=== PATIENT | male | born 1950 ===

== ENCOUNTER 2024-08-25 16:58 | Inpatient (IN) | payer OTHER, SELFPAY ==
[2024-08-25] VITALS (10 sets, daily range): BP systolic 59–140; BP diastolic 42–81; BMI 32.4
[2024-08-25 13:14] LABS: % Basophils 0.3 % (0-2); % Eosinophils 0.5 % (0-6); % Immature Granulocytes 0.7 % (0-0.5); % Lymphocytes 15.1 % (20.5-51.1); % Monocytes 5.2 % (1.7-9.3); % Neutrophils 78.2 % (42.2-75.2); Absolute Eosinophils 0.1 10^3/uL (0-0.7); Absolute Immature Granulocytes 0.1 10^3/uL (0-0.05); Absolute Lymphocytes 1.5 10^3/uL (1.2-3.4); Absolute Monocytes 0.5 10^3/uL (0.1-0.6); Absolute Neutrophils 7.9 10^3/uL (1.4-6.5); Hematocrit 36.9 % (39.0-52.0); Hemoglobin 12.6 g/dL (13.0-18.0); Mean Corp Hgb Conc. 34.1 g/dL (33.0-37.0); Mean Corpuscular Hgb 30.9 pg (27.0-31.0); Mean Corpuscular Volume 90.4 fL (80.0-94.0); Mean Platelet Volume 10.2 fL (7.4-10.4); Nucleated Red Blood Cells % 0 % (-); Platelet Count 346 10^3/uL (130-400); Red Blood Cell Count 4.08 10^6/uL (4.70-6.10); Red Cell Dist. Width 11.9 % (11.5-14.5); White Blood Cell Count 10.1 10^3/uL (4.8-10.8)
[2024-08-25 13:27] LABS: APTT 42.5 Sec (23.4-35.0)
--- NOTE | 2024-08-25 13:28 | ED.GENMED ---
History of Present Illness
General
Chief Complaint: Eye Problems
Time Seen by Provider: 08/25/24 13:14
History of Present Illness
History of Present Illness:
73-year-old male with history of PEs on Eliquis, BPH status post Javier catheter, high cholesterol, and hypertension presents for evaluation of left eye vision loss that began 3 days ago. He states it was rather sudden. It seems to wax and wane but
feels as though a 'shroud' has covered his left eye. He saw his quality assurance representative today who was concerned for branch retinal artery occlusion and referred him into the ED. He denies headaches but does report lightheadedness. No nausea vomiting or
diarrhea. No recent head trauma. Denies any speech difficulties or extremity deficits
Review of Systems
Review of Systems
Allergies reviewed?: Yes
All Other Systems: ROS reviewed and negative except as documented in HPI and ROS
Phy Exam
Physical Exam
Physical Exam:
GEN: Well appearing, NAD, WDWN
HEENT: Significant pupillary dilation secondary to prior ophthalmologic exam, normal extraocular motions, no temporal artery tenderness bilaterally, oral mucosa moist, no scleral icterus, no nasal congestion
Cardiac: Regular rate
Lung: No respiratory distress, no tachypnea
MSK: No gross deformity or injuries
Skin: Good color, no pallor or jaundice, no rashes
Neuro: AO x3; CN II-XII grossly intact. BUE strength 5/5 in all beckett, sensation intact and symmetric. BLE strength 5/5 in all beckett, sensation intact and symmetric
Psych: Calm, cooperative
Course
Orders/Labs/Results
Orders:
Orders
08/25/24 Breakfast
Cholesterol Lowering
At Your Request: Full Participation
Cholesterol Lowering: Sodium, 2 Gram
08/25/24 12:59
C-Reactive Protein Urgent
Comment: ADD ON
Complete Blood Count/With Diff Urgent
Comprehensive Metabolic Panel Urgent
Erythrocyte Sed Rate Urgent
Comment: ADD ON
PTT Urgent
08/25/24 13:27
Add On- LAB Urgent
Tests Added?: CRP, ESR
08/25/24 13:30
0.9% Sodium Chloride 1000 ml [Nss] 1,000 ml IV BOLUS
08/25/24 13:53
CT Head W/o Iv Contrast Urgent
Comment:
Reason For Exam: L eye vision loss
08/25/24 15:02
Electrocardiogram (*1) Urgent
Reason for Study: QTc Monitoring
EKG- Treatment ONCE
08/25/24 16:31
Urinalysis Reflex To Culture Urgent
Date Specimen was Collected: 08/25/24
Time Specimen was Collected: 13:54
Urine Microscopic Reflex Cult Urgent
Urine Culture Urgent
ERIC Source: U
Specimen Description:
Date Specimen was Collected: 08/25/24
Time Specimen was Collected: 13:54
08/25/24 16:43
Admit/Transfer Patient As Directed
Co-Sign Provider:
Level of Care: Inpatient admission
Assign to:: Telemetry
Physician / Group: Landeros/hospitalist
Diagnosis: ARF, retinal artery occlusion
Reason for Telemetry: CVA/TIA
Date to Stop Telemetry: 08/28/24
Time to Stop Telemetry: 11:00
Reason for Hospitalization: IVFs, retinal artery occlusion work-up
Expected length of stay greater than two midnights?: Yes
ELOS- Estimated Length of Stay in days: 3
I certify the patient meets the requirements for IP care: Yes
PRN Pain Medication Management As Directed
May give lesser potent ordered pain med per pt: Yes
preference::
Protocol:: Medication orders for pain may be administered in a
manner that supports deferring to patient preference
when the pt is:
- Requesting an ordered lesser potent pain medication.
Least to most potent pain medications are defined
as: acetaminophen < NSAID < tramadol < opioids
(morphine, oxycodone, hydromorphone).
- Requesting a lesser dose of the same medication IF
ORDERED.
- Requesting a less intrusive route of administration
if both routes are prescribed by the provider (PO <
IV).
08/25/24 16:44
Code Status As Directed
Resuscitation Status: Full Code
08/25/24 16:45
0.9% Sodium Chloride 1000 ml [Nss] 1,000 ml IV 100 mls/hr
08/25/24 17:01
Urine Creatinine Urgent
Date Specimen was Collected: 08/25/24
Time Specimen was Collected: 16:58
Urine Sodium Urgent
Date Specimen was Collected: 08/25/24
Time Specimen was Collected: 16:58
08/25/24 18:55
Acetaminophen [Tylenol] 650 mg PO Q4HPRN PRN
08/25/24 18:55
Activity As Directed
Activity Level: Out of Bed-Early Mobility
With Assistance
Javier Catheter [Catheter- Indwelling] As Directed
Reason for insertion: Chronic Javier on Admit
I&O [Intake/ Output] As Directed
Frequency: q12h
Obtain Records As Directed
Dates of Information to be Released: May 2024
Type of Information Requested: Discharge Summary
Lab Results
Radiology Results
Obtain Records from: [facility]
Vital Signs As Directed
Frequency: Per unit guidelines
08/25/24 20:00
Apixaban [Eliquis] 5 mg PO BID
08/26/24 06:00
Complete Blood Count/No Diff IN AM
08/28/24 11:00
DC Protocol for Telemetry ONCE
Abnormal Lab Results
08/25/24 08/25/24
12:59 16:31
RBC 4.08 L 10^6/uL
(4.70-6.10)
Hgb 12.6 L g/dL
(13.0-18.0)
Hct 36.9 L %
(39.0-52.0)
Abs Immat Gran (auto) 0.1 H 10^3/uL
(0-0.05)
Absolute Neuts (auto) 7.9 H 10^3/uL
(1.4-6.5)
Immature Gran % 0.7 H %
(0-0.5)
Neutrophils % 78.2 H %
(42.2-75.2)
Lymphocytes % 15.1 L %
(20.5-51.1)
ESR 71 H mm/hour
(0-20)
APTT 42.5 H Sec
(23.4-35.0)
BUN 65 H mg/dl
(9-20)
Creatinine 3.9 H mg/dL
(0.7-1.3)
Glucose 160 H mg/dl
(70-99)
ALT 53 H U/L
(0-50)
Alkaline Phosphatase 157 H U/L
(38-126)
C-Reactive Protein 12.40 H mg/L
(0.0-10.00)
Ur Occult Blood Reflex 4+ A
(Negative)
Leukocyte Esterase Rfl 3+ A
(Negative)
Urine RBC 3-6 A /HPF
(0-2)
Urine WBC (Reflex) 90-100 A /HPF
(0-5)
Urine Bacteria (Reflex) Few A
(Negative)
Urine Albumin (Reflex) 2+ A
(Neg - Trace)
08/25/24 12:59
08/25/24 12:59
Vital Signs
Initial and Last Documented VS:
Initial Vital Signs
Temp Pulse Resp BP Pulse Ox
98.2 F 101 20 79/46 98
08/25/24 12:47 08/25/24 12:47 08/25/24 12:47 08/25/24 12:47 08/25/24 12:47
Last Documented Vital Signs
Temp Pulse Resp BP Pulse Ox
98 F 98 20 140/81 99
08/25/24 19:05 08/25/24 19:05 08/25/24 19:05 08/25/24 19:05 08/25/24 19:05
MDM/Problems Addressed
MDM/Problems Addressed:
Unfortunately due to the patient's acute renal failure we cannot obtain CT angiogram imaging to evaluate the carotid in the setting of acute visual loss. Nevertheless this is likely an isolated branch retinal artery occlusion and the patient is
already anticoagulated. He will be admitted for further workup of his acute renal failure and visual loss.
*Critical Care Note
Total Time (30-74mins, 75-104mins- exclusive of procedures): Not Applicable
Update Note
Update Note:
Patient notes he was admitted to [facility] May for acute renal failure that was felt to be due to bladder outlet obstruction from BPH, status post Javier catheter. He states on admission his creatinine was 4.9 and at discharge it was
1.6 or 1.7.
ED Attending Note
-
Portions of this chart may have been created with voice recognition software.� Occasional wrong word or��sound alike� substitutions may have occurred due to the inherent limitations of voice recognition software.
Discharge Plan
Departure
Patient Disposition: Admit
Date of Disposition: 08/25/24
Time of Disposition: 15:32
Admit to: Med/Surg
Presentation/result/management discussed w/ accepting MD/DO: Hospitalist
Discharge Problem:
Acute renal failure, Vision loss, left eye
Interventions
Interventions:
*Risk Screen - Suicide Last Done: 08/25/24 13:41
*General Assessment Last Done: 08/25/24 12:47
*Neglect/Abuse Screening Last Done: 08/25/24 13:41
*ED- Fall Risk Assessment Last Done: 08/25/24 13:41
*ED COVID-19 Vaccine History Last Done: 08/25/24 13:41
*Nursing Disposition Last Done: 08/25/24 18:03
Discharge Date and Time
Discharge Date/Time: 08/25/24 18:44
[2024-08-25 13:40] LABS: ALT (SGPT) 53 U/L (0-50); AST (SGOT) 46 U/L (17-59); Albumin 3.6 g/dl (3.5-5.0); Alkaline Phosphatase 157 U/L (38-126); Blood Urea Nitrogen 65 mg/dl (9-20); Calcium 9.5 mg/dl (8.4-10.2); Carbon Dioxide 24 mmol/L (22-30); Chloride 104 mmol/L (98-107); Estimated Creatinine Clearance 18 ml/min; Glucose 160 mg/dl (70-99); Potassium 4.3 mmol/L (3.5-5.1); Sodium 139 mmol/L (135-145); Total Bilirubin 0.6 mg/dl (0.2-1.3); Total Protein 6.8 g/dl (6.3-8.2); eGFR 15.33
[2024-08-25] MEDS: NSS 1000 IV ×3 (13:55→19:51)
[2024-08-25 15:27] LABS: Erythrocyte Sed Rate 71 mm/hour (0-20)
--- NOTE | 2024-08-25 16:49 | HPS.HSE ---
Addendum entered and electronically signed by Ian Landeros MD 08/25/24 17:53:
I saw and examined the patient.
The TRANSPORTATION OFFICER or PA's note was reviewed and I agree with the note.
Comment: 73-year-old male with past medical history of PE on Eliquis, hyperlipidemia, hypertension, BPH status post chronic Javier catheter came to the hospital with left eye vision loss. Per patient his symptoms started on Tuesday which prompted
him to go to his PCP for evaluation. PCP referred him to the medicaid plan compliance director who he saw today who diagnosed him with branch retinal artery occlusion and referred him to the ED for evaluation. ESR and CRP mildly high. Check MRI/MRA. Does have
elevated creatinine. Unknown baseline however appears to be around 1's. UA suggestive of UTI. Start ceftriaxone. Exchange Javier catheter. Consult nephrology and neurology. Depends on imaging, will need to see if need to get vascular surgery
involved. High-dose statin. Check A1c.
General: Comfortable and Conversant
HEENT: Anicteric, Moist mucous membranes and Other (Pupils dilated following retinal eye exam performed by medicaid plan compliance director earlier today)
Respiratory: Clear and Non Labored Respirations
Cardiac: S1/S2 and Regular Rhythm
GI: Soft and Non Tender
Genito-urinary: Clear Urine and Javier
Musculoskeletal: No Clubbing, No Cyanosis and No Edema
Skin: Other (Chronic lower extremity skin discoloration)
Neuro: Awake, Alert, Oriented and Nonfocal/grossly intact
Psych: Calm
I spent a total of 77 minutes with the patient or on the floor. More than 50% of this time involved counseling and coordination of care.
Original Note:
Family Physician
-
Family Physician: Petros Agustin
Chief Complaint
-
Left Eye Vision Loss
History of Present Illness
Patient is 73 y/o male past medical history of pulmonary embolism on Eliquis, hypertension, hyperlipidemia, and urinary retention with chronic Javier who presents with left eye vision loss. Patient reports he awoke on Tuesday morning (3 days ago)
describing a 'shroud' over his left eye. He describes it a mostly black with jagged edges. He was seen by Ophthalmology today who performed funduscopic exam and diagnosed him with a branch retinal artery occlusion, and referred him to the
emergency department for evaluation. Work-up in the emergency department revealed a creatinine of 3.9. Patient reports he had acute renal failure with creatinine around 4.9 while he was at [facility] for his pulmonary embolism in May
2023. At that time he had the Javier catheter placed due to urinary retention, and at discharged his creatinine was around 1.1. Patient denies vomiting or diarrhea, and reports good appetite with adequate fluid intake. He admits to frequent episodes
of lightheadedness recently.
Medical History
Past Medical History
Past Medical History: Reports Other
Additional Past Medical History:
Pulmonary Embolism - May 2024
Essential Hypertension
Hyperlipidemia
Urinary Retention
Past Surgical History: Reports Other
Additional Past Surgical History:
Left Indirect Inguinal Hernia Repair
Appendectomy
Social History
Tobacco: Non-smoker
Alcohol: None
Family History
Family History: Not pertinent
Allergies / Home Medications
Allergies reflects when Allergies were last updated in [employer].
Home Medications with original date entered in [employer]
Allergy/Medication List:
Allergies
Allergy/AdvReac Type Severity Reaction Status Date / Time
No Known Allergies Allergy Verified 08/25/24 12:47
Home Medications
apixaban 5 mg tablet (Eliquis) 5 mg PO BID 08/25/24
bisacodyl 5 mg tablet,delayed release (Dulcolax (bisacodyl)) 5 mg PO DAILYPRN PRN constipation 08/25/24
lisinopril 10 mg-hydrochlorothiazide 12.5 mg tablet 1 tab PO DAILY 08/25/24
rosuvastatin 5 mg tablet 5 mg PO HS 08/25/24
therapeutic multivitamin 1 tab PO DAILY 08/25/24
Review of Systems
-
A 12 point ROS was completed and negative except as noted: Yes
Constitutional: Denies Fever or Chills
Respiratory: Denies Cough or Trouble Breathing
Cardiac: Denies Chest Pain or Palpitations
Abdomen/GI: Denies Abdominal Pain, Nausea, Vomiting or Diarrhea
: Reports Javier and Other (No changes in urine output)
Physical Exam
Vital Signs
Vital Signs
Temp Pulse Resp BP Pulse Ox
98.2 F 99 18 84/65 97
08/25/24 12:47 08/25/24 13:37 08/25/24 13:37 08/25/24 13:37 08/25/24 13:41
Physical Exam
General: Comfortable and Conversant
HEENT: Anicteric, Moist mucous membranes and Other (Pupils dilated following retinal eye exam performed by medicaid plan compliance director earlier today)
Respiratory: Clear and Non Labored Respirations
Cardiac: S1/S2 and Regular Rhythm
GI: Soft and Non Tender
Rectal: Deferred by Provider
Genito-urinary: Clear Urine and Javier
Musculoskeletal: No Clubbing, No Cyanosis and No Edema
Skin: Warm, Dry and Other (Chronic lower extremity skin discoloration)
Neuro: Awake, Alert, Oriented and Nonfocal/grossly intact
Psych: Calm
Laboratory Results
-
08/25/24 12:59
08/25/24 12:59
Laboratory Results
APTT 42.5 Sec (23.4-35.0) H 08/25/24 12:59
Total Bilirubin 0.6 mg/dl (0.2-1.3) 08/25/24 12:59
AST 46 U/L (17-59) 08/25/24 12:59
ALT 53 U/L (0-50) H 08/25/24 12:59
Alkaline Phosphatase 157 U/L (38-126) H 08/25/24 12:59
Data Reviewed
-
Lab Data: Labs Reviewed by me
Old Records: Requested
Impression/Plan
-
Acute Kidney Injury, possibly related to hypotension
-Consult Nephrology
-Attempt to obtained records from [facility]
-Hold lisinopril / HCTZ
-Continue IVFs
-Recheck creatinine in AM
Left Eye Vision Loss possibly secondary to Branch Retinal Artery Occlusion, other differential would include giant cell arteritis in setting of elevated ESR/CRP
-Consult Neurology
-Check Brain MRI with Head/Neck MRA
-Check HgbA1c and Lipid Panel
-Increase Crestor 40mg Daily
-Consider Vascular Surgery consult for temporal artery biopsy based on imaging results
Pulmonary Embolism - May 2024
-Continue Eliquis
Essential Hypertension
-Lisinopril / HCTZ on hold as above
Hyperlipidemia
-Continue Crestor
Chronic Urinary Retention
-Last Javier catheter exchange was over one months - Exchange catheter upon arrival to the floor
DVT proph: Eliquis
Code Status: Full Code
[2024-08-25 17:21] LABS: Urine Albumin 2+ (Neg - Trace); Urine Bilirubin Negative (Negative); Urine Character Cloudy (Clear); Urine Color Yellow; Urine Glucose Negative (Negative); Urine Ketone Negative (Negative); Urine Leukocyte 3+ (Negative); Urine Nitrite Negative (Negative); Urine Occult Blood 4+ (Negative); Urine Urobilinogen Negative (Neg - 1+)
[2024-08-25 17:28] LABS: Urine Squamous Cell 0-2 /LPF (Few); Urine White Cell 90-100 /HPF (0-5)
[2024-08-25 17:29] LABS: Urine Bacteria Few (Negative)
[2024-08-25 17:31] LABS: Urine Sodium 40 mmol/L (30-90)
--- NOTE | 2024-08-25 18:03 | EDRN ---
this RN called the receiving unit and notified them that paper report was going to be tubed up
[2024-08-25] MEDS: ROCEPHIN 1000 MG IV (18:32)
[2024-08-25] MEDS: STERILE WATER FOR INJECTION 10 ML IV (18:32)
[2024-08-25] MEDS: ELIQUIS 5 MG PO (19:51)
[2024-08-25] MEDS: CRESTOR 40 MG PO (19:51)
[2024-08-26 03:48] VITALS: BP 110/82
[2024-08-26] MEDS: NSS 1000 IV ×2 (05:38→23:55)
[2024-08-26 06:00] VITALS: BMI 32.0
[2024-08-26 07:05] VITALS: BP 140/93
[2024-08-26 07:44] LABS: Hematocrit 34.2 % (39.0-52.0); Hemoglobin 11.3 g/dL (13.0-18.0); Mean Corpuscular Hgb 30.1 pg (27.0-31.0); Mean Platelet Volume 10.2 fL (7.4-10.4); Platelet Count 294 10^3/uL (130-400); Red Blood Cell Count 3.76 10^6/uL (4.70-6.10); White Blood Cell Count 9.7 10^3/uL (4.8-10.8)
[2024-08-26] MEDS: ELIQUIS 5 MG PO (07:54)
[2024-08-26 08:08] LABS: ALT (SGPT) 44 U/L (0-50); AST (SGOT) 36 U/L (17-59); Albumin 3.3 g/dl (3.5-5.0); Alkaline Phosphatase 146 U/L (38-126); Blood Urea Nitrogen 59 mg/dl (9-20); Calcium 8.9 mg/dl (8.4-10.2); Carbon Dioxide 23 mmol/L (22-30); Chloride 109 mmol/L (98-107); Direct Bilirubin 0.2 mg/dl (0.0-0.4); Estimated Creatinine Clearance 22 ml/min; Glucose 115 mg/dl (70-99); HDL Cholesterol 24 mg/dl; LDL Cholesterol, Calculated 44 mg/dl; Potassium 4.9 mmol/L (3.5-5.1); Sodium 144 mmol/L (135-145); Total Bilirubin 0.6 mg/dl (0.2-1.3); Total Cholesterol 94 mg/dl (50-199); Total Protein 6.3 g/dl (6.3-8.2); Triglyceride 133 mg/dl (10-149); Very Low Density Lipoprotein 26 mg/dl (0-30); eGFR 18.73
[2024-08-26 08:47] LABS: Glycohemoglobin (HgbA1c) 6.4 % (4.0-5.6)
--- NOTE | 2024-08-26 09:58 | W.CON.NEPH ---
Consultation
-
Date/Time Consultation Requested: 08/26/2024 7 AM
Date/Time Consultation Performed: 08/26/2024 10 AM
Requesting Provider: Dr. Landeros
Performing Provider: Dr. Wright
Reason for Consultation: ZHOU
Medical History
-
Chief Complaint: Vision loss
History of Present Illness:
Patient is 73 y/o male with history of pulmonary embolism on Eliquis, hypertension, hyperlipidemia, and urinary retention with chronic Javier who presents with left eye vision loss. 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
describing a 'shroud' over his left eye. He describes it a mostly black with jagged edges. He was seen by Ophthalmology today who performed funduscopic exam and diagnosed him with a branch retinal artery occlusion, and referred him to the
emergency department for evaluation. Work-up in the emergency department revealed a creatinine of 3.9. Patient reports he had acute renal failure with creatinine around 4.9 while he was at [facility] for his pulmonary embolism in May
2023. At that time he had the Javier catheter placed due to urinary retention, and at discharged his creatinine was around 1.1. Patient denies vomiting or diarrhea, and reports good appetite with adequate fluid intake. He admits to frequent episodes
of lightheadedness recently. He denies any use of NSAIDs recently. He has had no issues with his antihypertensive regimen. He has not been on recent antibiotics. He denies any issues with his Javier catheter though it is overdue for exchange.
Past Medical History
Pulmonary Embolism - May 2024
Essential Hypertension
Hyperlipidemia
Urinary Retention
Left Indirect Inguinal Hernia Repair
Appendectomy
Social History
Tobacco: Non-Smoker
Alcohol: None
Family History
Family History: Not Pertinent
Allergies / Home Medications
Allergy/AdvReac Type Severity Reaction Status Date / Time
No Known Allergies Allergy Verified 08/25/24 12:47
�Medication �Instructions �Recorded �Confirmed �Type
apixaban 5 mg tablet (Eliquis) 5 mg PO BID 08/25/24 08/25/24 History
bisacodyl 5 mg tablet,delayed 5 mg PO DAILYPRN PRN constipation 08/25/24 08/25/24 History
release (Dulcolax (bisacodyl))
lisinopril 10 1 tab PO DAILY 08/25/24 08/25/24 History
mg-hydrochlorothiazide 12.5 mg
tablet
rosuvastatin 5 mg tablet 5 mg PO HS 08/25/24 08/25/24 History
therapeutic multivitamin 1 tab PO DAILY 08/25/24 08/25/24 History
Review of Systems
-
No chest pain or shortness of breath
Vision changes above
All other systems: Negative unless noted
Physical Exam
Vital Signs
Vital Signs
Temp Pulse Resp BP Pulse Ox
97.7 F 81 18 140/93 98
08/26/24 07:05 08/26/24 07:05 08/26/24 07:05 08/26/24 07:05 08/26/24 07:05
Lab Results
WBC 9.7 10^3/uL (4.8-10.8) 08/26/24 07:27
RBC 3.76 10^6/uL (4.70-6.10) L 08/26/24 07:27
Hgb 11.3 g/dL (13.0-18.0) L 08/26/24 07:27
Hct 34.2 % (39.0-52.0) L 08/26/24 07:27
Plt Count 294 10^3/uL (130-400) 08/26/24 07:27
Sodium 144 mmol/L (135-145) 08/26/24 07:27
Potassium 4.9 mmol/L (3.5-5.1) 08/26/24 07:27
Chloride 109 mmol/L (98-107) H 08/26/24 07:27
Carbon Dioxide 23 mmol/L (22-30) 08/26/24 07:27
BUN 59 mg/dl (9-20) H 08/26/24 07:27
Creatinine 3.3 mg/dL (0.7-1.3) H 08/26/24 07:27
eGFR 18.73 08/26/24 07:27
Glucose 115 mg/dl (70-99) H 08/26/24 07:27
Calcium 8.9 mg/dl (8.4-10.2) 08/26/24 07:27
Albumin 3.3 g/dl (3.5-5.0) L 08/26/24 07:27
Laboratory Tests
08/25/24 08/25/24
16:31 17:01
Urine pH 6.0
Ur Specific [place] 1.010
Ur Occult Blood Reflex 4+ A
Urine WBC (Reflex) 90-100 A
Urine Creatinine 53.600
Urine Sodium 40
Urine Albumin (Reflex) 2+ A
Laboratory Tests
09/06/16
09:[address] head 08/25/2024
IMPRESSION:
3 mm focus of decreased density within the left lentiform nucleus, which likely represents a small focus of old lacunar infarction.
No CT evidence for acute intracranial abnormality.
Physical Exam
Patient is awake alert oriented and in no distress. Mood and affect were pleasant, insight and judgment were good. Pupils are equal round and reactive to light, extraocular movements are intact, sclera were anicteric. Hearing was normal, ears and
nose are intact. Oropharynx was clear. Neck was supple with trachea midline and no thyromegaly. Heart was regular rate and rhythm without rubs. Lower extremities without edema. Lungs were clear to auscultation bilaterally and with normal
excursion. Abdomen was soft, nontender, with normal active bowel sounds, and no hepatosplenomegaly. Skin was without rash and with normal turgor.
Data Reviewed
-
CT Scan: Report Reviewed by me
Medical Tests ([employer], Echo etc): Image Personally Visualized and interpreted (EKG 08/25/2024 by my reading normal sinus rhythm)
Labs: Labs Reviewed by me
Old Records: Requested and Reviewed
Assessment/Plan
-
Assessment
Loss of vision
ZHOU
Chronic Javier for retention
Hypertension
History of pulmonary embolism on anticoagulation
Plan
No evidence of retention. Javier functioning well
For Jvaier exchange
Continue IV fluids
Follow BMP
Difficult to interpret urine given chronic Javier
Additional workup may be warranted if creatinine stalls
--- NOTE | 2024-08-26 10:45 | W.PN.HOSP.TC ---
Addendum entered and electronically signed by Ian Landeros MD 08/26/24 11:15:
CT with old lacunar infarct
Original Note:
Today's Communication/Plan
-
Monitor vital signs see plan
MRI/MRA
Neurology to see
Monitor creatinine
Exchange Javier catheter
Continue antibiotics
Follow urine culture
Assessment / Plan
Assessment / Plan
General: Comfortable and Conversant
HEENT: Anicteric, Moist mucous membranes and Other (Pupils dilated following retinal eye exam performed by prevention specialist earlier today)
Respiratory: Clear and Non Labored Respirations
Cardiac: S1/S2 and Regular Rhythm
GI: Soft and Non Tender
Genito-urinary: Clear Urine and Javier
Musculoskeletal: No Edema
Skin: Other (Chronic lower extremity skin discoloration)
Neuro: Awake, Alert, Oriented and Nonfocal/grossly intact
Psych: Calm
Acute Kidney Injury, possibly related to hypotension
-Consult Nephrology
-Attempt to obtained records from [facility]
-Hold lisinopril / HCTZ
-Continue IVFs
Admission creatinine, 3.9. Creatinine now 3.3
per patient when he was discharged from [place] in May his creatinine was 1's
Left Eye Vision Loss possibly secondary to Branch Retinal Artery Occlusion, other differential would include giant cell arteritis in setting of elevated ESR/CRP
Was seen by ophthalmology prior to coming to the hospital
no headache or pain so GCA is unlikely
-Consulted Neurology
-Check Brain MRI with Head/Neck MRA
A1c pending
-Increase Crestor 40mg Daily
-Consider Vascular Surgery consult for temporal artery biopsy based on imaging results
UTI
Likely secondary to chronic catheter
Exchange Javier catheter
Continue ceftriaxone
Follow urine culture
Pulmonary Embolism - May 2024
-Continue Eliquis
Essential Hypertension
-Lisinopril / HCTZ on hold as above
Hyperlipidemia
-Continue Crestor
Chronic Urinary Retention
-Last Javier catheter exchange was over one months - Exchange catheter
DVT proph: Eliquis
Code Status: Full Code
I spent a total of 52 minutes with the patient or on the floor. More than 50% of this time involved counseling and coordination of care.
Anticipated Discharge: > 48 hours
Subjective/Interval History
-
Date of Service: August 26, 2024
denies pain
Objective Data
-
Labs:
Laboratory Results
08/26/24
07:27
WBC 9.7
Hgb 11.3 L
Hct 34.2 L
Plt Count 294
Sodium 144
Potassium 4.9
Chloride 109 H
Carbon Dioxide 23
BUN 59 H
Creatinine 3.3 H
Glucose 115 H
Calcium 8.9
Total Bilirubin 0.6
AST 36
ALT 44
Alkaline Phosphatase 146 H
Vital Signs:
Vital Signs
Temp Pulse Resp BP Pulse Ox
97.7 F 81 18 140/93 98
08/26/24 07:05 08/26/24 07:05 08/26/24 07:05 08/26/24 07:05 08/26/24 07:05
I&O
08/25/24 08/26/24 08/27/24
06:59 06:59 06:59
Output Total 3000 / 3000
Balance -3000 / -3000
[2024-08-26 11:05] VITALS: BP 130/90
--- NOTE | 2024-08-26 11:29 | CM ---
CM following re: discharge planning.
Reviewed pt's chart,met with pt.
Pt is a 73 year old male, admitted with primary dx of Left Eye Vision Loss possibly secondary to Branch Retinal Artery Occlusion. ZHOU.
Pt reports he lives with spouse and 2 sons [facility], 1 step to enter, has 3 supportive children. 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
PCP: Petros Agustin
Pharmacy: [facility]
D/C plan: home with anticipated no needs.
CM will follow with discharge plan updates as hospitalization progresses
[2024-08-26 12:15] LABS: Glucose - Point of Care 130 mg/dl (70-99)
[2024-08-26] MEDS: NOVOLOG FLEXPEN-LOW RESISTANCE SC ×2 (12:20→18:41)
[2024-08-26 15:05] VITALS: BP 127/78
[2024-08-26] MEDS: LIDOCAINE URO-JET 2% 1 SYRINGE TOPICAL ×2 (15:16→17:20)
[2024-08-26 17:45] LABS: Glucose - Point of Care 159 mg/dl (70-99)
--- NOTE | 2024-08-26 18:15 | PTCARENOTE ---
3 attempts to replace luque catheter were unsuccessful. Attempted to place 20F first and met resistance and no flow of urine noted. Blood clot noted on end of catheter when removed. Bladder scan completed which showed 280mL prior to attempting
again. 20F was attempted again by a different RN without success and then 16F catheter attempted, again meeting resistance and unable to inflate balloon. Dr. Landeros notified who consulted urology.
[2024-08-26] MEDS: CRESTOR 40 MG PO (18:41)
[2024-08-26] MEDS: STERILE WATER FOR INJECTION 10 ML IV (18:42)
[2024-08-26] MEDS: ROCEPHIN 1000 MG IV (18:42)
[2024-08-26 19:59] VITALS: BP 127/87
--- NOTE | 2024-08-26 20:30 | W.PN.URO.CBU ---
Today's Communication / Plan
-
lkeeo luque hand orrigate prn clots
Assessment / Plan
-
luque trauma placed 20 fr coude shall follow up with pvt urologist expect bleeding
Diagnosis
-
Date of Service: August 26, 2024
-
Patient Diagnosis:bph chronic retntion now hematuroia and luque trauma difficult folry
Post Op Day:
Subjective
-
pain cannot void
Objective
-
Vital Signs
Temp Pulse Resp BP Pulse Ox
98.2 F 93 20 127/78 98
08/26/24 15:05 08/26/24 15:05 08/26/24 15:05 08/26/24 15:05 08/26/24 15:05
Intake and Output
08/25/24 08/26/24 08/27/24
06:59 06:59 06:59
Intake Total 1200 / 1200
Output Total 3000 / 3000 1600 / 1600
Balance -3000 / -3000 -400 / -400
Intake:
Oral fluids 1200 / 1200
Output:
Urine, Luque 3000 / 3000 1600 / 1600
Laboratory Results
08/26/24 07:27
08/26/24 07:27
Review of Systems
-
: Difficulty Voiding and Bleeding
Physical Exam
-
General - well developed, well nourished, no acute distress
Chest - clear bilaterally
Abdomen - soft, non-tender, positive bowel sounds, no CVAT, no incisional pain or distention
Genitalia - normal
Rectal - normal
Skin - warm & dry with no rash
Neuro - AOx3, no motor deficits
Extremities - no clubbing, no cyanosis, no edema
Incision - clean, dry
Dressing - clean, dry, intact
Care Review
Data Reviewed
Discussed with: Hospitalist and Nursing
--- NOTE | 2024-08-26 20:55 | CON.NEURO ---
Neuro Assessment/Plan
Assessment
BRAO left eye
Brain MRI imgs rev'd, chronic lacune left lentiform nucleus - was silent
HDL 24, LDL 44
Plan
Continue Eliquis 5 mg BID - when he completes it, will need to start aspirin 81
Crestor increased to 40
pending MRA head/neck, ECHO
Consultation
Order
Date of Consultation: 08/26/24
Requesting Provider: Ian Lnaderos
Reason for Consult: BRAO
Subjective/Objective
Subjective Data
Date of Service: August 26, 2024
from H&P:
73-year-old male with past medical history of PE on Eliquis, hyperlipidemia, hypertension, BPH status post chronic Javier catheter came to the hospital with left eye vision loss. Per patient his symptoms started on Tuesday which prompted him to go
to his PCP for evaluation. 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
This evening he reports fuzzy vision left eye in the upper half. no weakness/numbness. he does not drive
Objective Data
Vital Signs
Temp Pulse Resp BP Pulse Ox
37.2 C 100 18 127/87 97
08/26/24 19:59 08/26/24 19:59 08/26/24 19:59 08/26/24 19:59 08/26/24 19:59
Lab Results
08/26/24 07:27
08/26/24 07:27
APTT 42.5 Sec (23.4-35.0) H 08/25/24 12:59
Sodium 144 mmol/L (135-145) 08/26/24 07:27
Potassium 4.9 mmol/L (3.5-5.1) 08/26/24 07:27
BUN 59 mg/dl (9-20) H 08/26/24 07:27
Glucose 115 mg/dl (70-99) H 08/26/24 07:27
Calcium 8.9 mg/dl (8.4-10.2) 08/26/24 07:27
LDL Cholesterol, Calc 44 mg/dl 08/26/24 07:27
Patient Allergies
No Known Allergies Allergy (Verified 08/25/24 12:47)
Physical Exam
-
AAOx3, speech clear, language intact
left eye visual field loss top half, EOMI, face symmetric
full strength b/l UE/LE, moderate vibratory loss both ankles
Medications
-
Active Medications
Generic Name Dose Route Start Last Admin
Trade Name Freq PRN Reason Stop Dose Admin
Acetaminophen 650 mg 08/25/24 18:55
Acetaminophen 325 Mg Tablet PO 09/22/24 18:54
Q4HPRN PRN
mild pain/ fever>100.5F
Apixaban 5 mg 08/25/24 20:00 08/26/24 07:54
Apixaban (Eliquis) 5 Mg Tablet PO 09/22/24 19:59 5 mg
BID ESTHER Administration
Ceftriaxone Sodium 1,000 mg 08/25/24 18:00 08/26/24 18:42
Ceftriaxone 1000 Mg / 10 Ml Vial IV 1,000 mg
Q24H ESTHER Administration
Dextrose 12.5 grams 08/26/24 10:48
Dextrose 50% (0.5 Grams/Ml) 50 Ml Syringe IV 09/23/24 10:47
[id number] PRN
hypoglycemia
Protocol
Glucagon 1 mg 08/26/24 10:48
Glucagon 1 Mg Vial IM 09/23/24 10:47
PRN PRN
hypoglycemia
Protocol
Sodium Chloride 1,000 mls @ 100 mls/hr 08/25/24 16:45 08/26/24 05:38
Nss IV 1,000 mls
.Q10H ESTHER Administration
Insulin Aspart 0 units 08/26/24 11:30 08/26/24 18:41
Insulin Aspart Low Resistance 300 Units/3 Ml Pen.Injctr SC 09/23/24 11:29 Not Given
AC ESTHER
Protocol
Rosuvastatin Calcium 40 mg 08/25/24 18:55 08/26/24 18:41
Rosuvastatin (Crestor) 20 Mg Tablet PO 09/22/24 18:54 40 mg
QPM ESTHER Administration
Sodium Chloride 0 flush 08/25/24 20:00
Sodium Chloride 0.9% (Flush) Syringe IV 09/22/24 19:59
PER PROTOCOL ESTHER
Sterile Water 10 ml 08/25/24 18:00 08/26/24 18:42
Sterile Water For Injection 10 Ml Vial IV 09/22/24 17:59 10 ml
Q24H ESTHER Administration
Home Medications
�Medication �Instructions �Recorded
apixaban 5 mg tablet (Eliquis) 5 mg PO BID Blood Clot 08/25/24
Prevention/Tx
bisacodyl 5 mg tablet,delayed 5 mg PO DAILYPRN PRN constipation 08/25/24
release (Dulcolax (bisacodyl))
lisinopril 10 1 tab PO DAILY Blood Pressure 08/25/24
mg-hydrochlorothiazide 12.5 mg
tablet
rosuvastatin 5 mg tablet 5 mg PO HS High Cholesterol 08/25/24
therapeutic multivitamin 1 tab PO DAILY Supplement 08/25/24
[2024-08-26] MEDS: ELIQUIS PO (21:40)
[2024-08-26 22:42] LABS: Glucose - Point of Care 122 mg/dl (70-99)
[2024-08-26 23:54] VITALS: BP 141/87
[2024-08-27] VITALS (7 sets, daily range): BP systolic 119–139; BP diastolic 82–94; PULSE 84
[2024-08-27 08:26] LABS: Glucose - Point of Care 108 mg/dl (70-99)
[2024-08-27 08:30] LABS: % Basophils 0.3 % (0-2); % Eosinophils 0.8 % (0-6); % Immature Granulocytes 0.8 % (0-0.5); % Lymphocytes 13.3 % (20.5-51.1); % Monocytes 8.2 % (1.7-9.3); % Neutrophils 76.6 % (42.2-75.2); Absolute Eosinophils 0.1 10^3/uL (0-0.7); Absolute Immature Granulocytes 0.1 10^3/uL (0-0.05); Absolute Lymphocytes 1.5 10^3/uL (1.2-3.4); Absolute Neutrophils 8.9 10^3/uL (1.4-6.5); Hematocrit 36.5 % (39.0-52.0); Mean Corp Hgb Conc. 32.9 g/dL (33.0-37.0); Mean Corpuscular Hgb 29.8 pg (27.0-31.0); Mean Corpuscular Volume 90.6 fL (80.0-94.0); Mean Platelet Volume 10.5 fL (7.4-10.4); Nucleated Red Blood Cells % 0 % (-); Platelet Count 336 10^3/uL (130-400); Red Blood Cell Count 4.03 10^6/uL (4.70-6.10); Red Cell Dist. Width 12.2 % (11.5-14.5); White Blood Cell Count 11.6 10^3/uL (4.8-10.8)
[2024-08-27] MEDS: ELIQUIS 5 MG PO ×2 (08:55→20:07)
[2024-08-27] MEDS: NOVOLOG FLEXPEN-LOW RESISTANCE SC ×2 (08:55→18:07)
[2024-08-27] MEDS: NSS 1000 IV ×2 (08:57→22:24)
[2024-08-27 09:04] LABS: ALT (SGPT) 38 U/L (0-50); AST (SGOT) 31 U/L (17-59); Alkaline Phosphatase 143 U/L (38-126); Blood Urea Nitrogen 48 mg/dl (9-20); Calcium 8.9 mg/dl (8.4-10.2); Carbon Dioxide 25 mmol/L (22-30); Chloride 111 mmol/L (98-107); Estimated Creatinine Clearance 23 ml/min; Glucose 107 mg/dl (70-99); Sodium 144 mmol/L (135-145); Total Bilirubin 0.5 mg/dl (0.2-1.3); eGFR 20.19
--- NOTE | 2024-08-27 11:42 | W.PN.HOSP.TC ---
Today's Communication/Plan
-
monitor vitals
see plan
cw eliquis
high dose statin
pt/ot
echo
neurology to see
monitor renal function
cw fluids
Assessment / Plan
Assessment / Plan
General: Comfortable and Conversant
HEENT: Anicteric, Moist mucous membranes and Other (Pupils dilated following retinal eye exam performed by pet technologist earlier today)
Respiratory: Clear and Non Labored Respirations
Cardiac: S1/S2 and Regular Rhythm
GI: Soft and Non Tender
Genito-urinary: Clear Urine and Javier
Musculoskeletal: No Edema
Skin: Other (Chronic lower extremity skin discoloration)
Neuro: Awake, Alert, Oriented and Nonfocal/grossly intact
Psych: Calm
Acute Kidney Injury, possibly related to hypotension
-Nephrology following
-Attempt to obtained records from [facility]
-Hold lisinopril / HCTZ
-Continue IVFs
Admission creatinine, 3.9. Creatinine now 3.1
per patient when he was discharged from [facility] in May his creatinine was 1's
Left Eye Vision Loss possibly secondary to Branch Retinal Artery Occlusion, other differential would include giant cell arteritis in setting of elevated ESR/CRP, however no eye pain
Was seen by ophthalmology prior to coming to the hospital
will need neurology f/u outpatient
no headache or pain so GCA is unlikely
neurology following
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 MRA noted; some tortuosity, wanted to see neurology opinion
A1c 6.4
-Increase Crestor 40mg Daily
-Consider Vascular Surgery consult for temporal artery biopsy based on imaging results
echo pending
UTI
Likely secondary to chronic catheter
Exchange Javier catheter
Continue ceftriaxone
Follow urine culture
hx of prediabetes per patient
now a1c 6.4 consistent with diabetes
diabetes education
Pulmonary Embolism - May 2024
-Continue Eliquis
Essential Hypertension
-Lisinopril / HCTZ on hold as above
Hyperlipidemia
-Continue Crestor
Chronic Urinary Retention
-Last Javier catheter exchange was over one months - Exchange catheter. RN tried multiple times and unable; urology was consulted. now catheter changed by Dr. Spicer
DVT proph: Eliquis
Code Status: Full Code
Anticipated Discharge: Within 24 hours
Subjective/Interval History
-
Date of Service: August 27, 2024
Denies pain
Objective Data
-
Labs:
Laboratory Results
08/27/24
07:40
WBC 11.6 H
Hgb 12.0 L
Hct 36.5 L
Plt Count 336
Sodium 144
Potassium 5.0
Chloride 111 H
Carbon Dioxide 25
BUN 48 H
Creatinine 3.1 H
Glucose 107 H
Calcium 8.9
Total Bilirubin 0.5
AST 31
ALT 38
Alkaline Phosphatase 143 H
Vital Signs:
Vital Signs
Temp Pulse Resp BP Pulse Ox
98.1 F 93 16 129/91 98
08/27/24 07:00 08/27/24 07:00 08/27/24 07:00 08/27/24 07:00 08/27/24 07:00
I&O
08/26/24 08/27/24 08/28/24
06:59 06:59 06:59
Intake Total 1200 / 1200 2160 / 2160
Output Total 3000 / 3000 2200 / 2200 2300 / 2300
Balance -3000 / -3000 -1000 / -1000 -140 / -140
[2024-08-27 12:27] LABS: Glucose - Point of Care 171 mg/dl (70-99)
[2024-08-27] MEDS: NOVOLOG FLEXPEN-LOW RESISTANCE 1 UNITS SC (13:00)
--- NOTE | 2024-08-27 13:29 | W.PN.NEPH.PH ---
Today's Communication / Plan
-
Continue IV fluid
Assessment/Plan
-
Assessment
Loss of vision
ZHOU
Chronic Javier for retention
Hypertension
History of pulmonary embolism on anticoagulation
Plan
Acuity likely secondary to hypotension with systolic blood pressure in the 80s on admission
No evidence of retention. Javier functioning well
Javier exchanged
Hold lisinopril and hydrochlorothiazide
Echocardiogram on this admission normal LV
Continue IV fluids
Creatinine peaked at 3.9 down to 3.1.
Chronic indwelling Javier. Patient states in May 2024 creatinine was as high as 4.9, catheter was exchanged with a creatinine improving to 1.1.
BMP in the morning
-
-
Date of Service: August 27, 2024
CC / HPI / ROS
-
Chief Complaint:
Acute kidney injury
History of Present Illness:
Acute kidney injury with hypotension chronic indwelling Javier
Review of Systems:.
No chest pain or shortness of breath. Javier catheter chronic indwelling nonoliguric
Labs
-
Labs:
WBC 11.6 10^3/uL (4.8-10.8) H 08/27/24 07:40
RBC 4.03 10^6/uL (4.70-6.10) L 08/27/24 07:40
Hgb 12.0 g/dL (13.0-18.0) L 08/27/24 07:40
Hct 36.5 % (39.0-52.0) L 08/27/24 07:40
Plt Count 336 10^3/uL (130-400) 08/27/24 07:40
Sodium 144 mmol/L (135-145) 08/27/24 07:40
Potassium 5.0 mmol/L (3.5-5.1) 08/27/24 07:40
Chloride 111 mmol/L (98-107) H 08/27/24 07:40
Carbon Dioxide 25 mmol/L (22-30) 08/27/24 07:40
BUN 48 mg/dl (9-20) H 08/27/24 07:40
Creatinine 3.1 mg/dL (0.7-1.3) H 08/27/24 07:40
eGFR 20.19 08/27/24 07:40
Glucose 107 mg/dl (70-99) H 08/27/24 07:40
Calcium 8.9 mg/dl (8.4-10.2) 08/27/24 07:40
Albumin 3.0 g/dl (3.5-5.0) L 08/27/24 07:40
Physical Exam
-
Vital Signs:
Vital Signs
Temp Pulse Resp BP Pulse Ox
98.0 F 96 16 129/84 98
08/27/24 11:40 08/27/24 11:40 08/27/24 11:40 08/27/24 11:40 08/27/24 11:40
Respiratory:: Bilateral: CTA
Lung Excursion:: Normal
Abdomen:: Soft
Bowel Sounds:: Normal
Extremity Edema:: +1: Bilateral:
Javier Catheter: Yes
[2024-08-27 15:50] LABS: TSH Reflex To Free T4 3.31 uIU/ml (0.47-4.68)
--- NOTE | 2024-08-27 15:59 | CM ---
Spoke with pt at bedside.
Continues IV antibiotics.
Pt will be discharged with a Javier .
Offered VN pt declined need. PT feels comfortable with Javier care.
He said [place]
PLAN Home no needs
[2024-08-27 16:25] LABS: Folate 13.7 ng/ml (2.76-20); Vitamin B12 > 1000 pg/ml (239-931)
[2024-08-27 17:30] LABS: Glucose - Point of Care 119 mg/dl (70-99)
--- NOTE | 2024-08-27 17:50 | PTCARENOTE ---
I met with Mr. Guo and his to train them on the OneTouch Verio Flex glucometer. Mr. Guo stated he is not able to visualize the monitor and supplies and requested help from his . I instructed her on the set up and use of the glucometer
and she return demonstrated doing a fingerstick glucose. I reinforced resources to refer to once they obtain their actual glucometer and supplies from the pharmacy. I also recommended they contact the diabetes office if they need further assistance.
Information regarding diabetes management and outpatient diabetes education classes were provided.
--- NOTE | 2024-08-27 17:54 | W.PN.URO.CBU ---
Today's Communication / Plan
-
continue pesent care
Assessment / Plan
-
luque trauma placed 20 fr coude shall follow up with pvt urologist expect bleeding
Diagnosis
-
Date of Service: August 27, 2024
-
Patient Diagnosis:
Post Op Day:
Patient Diagnosis:bph chronic retntion now hematuroia and luque trauma difficult folry
Post Op Day:
Subjective
-
feeling better hematuria subsiding
Objective
-
Vital Signs
Temp Pulse Resp BP Pulse Ox
98.1 F 90 16 119/82 96
08/27/24 15:15 08/27/24 15:15 08/27/24 15:15 08/27/24 15:15 08/27/24 15:15
Intake and Output
08/26/24 08/27/24 08/28/24
06:59 06:59 06:59
Intake Total 1200 / 1200 2160 / 2160
Output Total 3000 / 3000 2200 / 2200 2300 / 2300
Balance -3000 / -3000 -1000 / -1000 -140 / -140
Intake:
Oral fluids 1200 / 1200 960 / 960
IV fluids (Total) 1200 / 1200
Output:
Urine, Luque 3000 / 3000 2200 / 2200 2300 / 2300
Laboratory Results
08/27/24 07:40
08/27/24 07:40
Review of Systems
-
: Difficulty Voiding and Dark Urine
Physical Exam
-
General - well developed, well nourished, no acute distress
Chest - clear bilaterally
Abdomen - soft, non-tender, positive bowel sounds, no CVAT, no incisional pain or distention
Genitalia - normal
Rectal - normal
Skin - warm & dry with no rash
Neuro - AOx3, no motor deficits
Extremities - no clubbing, no cyanosis, no edema
Incision - clean, dry
Dressing - clean, dry, intact
Care Review
Data Reviewed
Discussed with: Nursing
[2024-08-27] MEDS: CRESTOR 40 MG PO (18:07)
[2024-08-27] MEDS: ROCEPHIN 1000 MG IV (18:08)
[2024-08-27] MEDS: STERILE WATER FOR INJECTION 10 ML IV (18:08)
[2024-08-27 21:54] LABS: Glucose - Point of Care 93 mg/dl (70-99)
[2024-08-28] VITALS (7 sets, daily range): BP systolic 125–152; BP diastolic 83–94; PULSE 82
[2024-08-28 08:09] LABS: Glucose - Point of Care 139 mg/dl (70-99)
[2024-08-28 08:15] LABS: % Basophils 0.4 % (0-2); % Eosinophils 2.5 % (0-6); % Lymphocytes 17.8 % (20.5-51.1); % Monocytes 8.7 % (1.7-9.3); % Neutrophils 69.6 % (42.2-75.2); Absolute Eosinophils 0.3 10^3/uL (0-0.7); Absolute Immature Granulocytes 0.1 10^3/uL (0-0.05); Absolute Lymphocytes 1.9 10^3/uL (1.2-3.4); Absolute Monocytes 0.9 10^3/uL (0.1-0.6); Absolute Neutrophils 7.5 10^3/uL (1.4-6.5); Hematocrit 35.1 % (39.0-52.0); Hemoglobin 11.6 g/dL (13.0-18.0); Mean Corpuscular Hgb 30.3 pg (27.0-31.0); Mean Corpuscular Volume 91.6 fL (80.0-94.0); Mean Platelet Volume 10.5 fL (7.4-10.4); Nucleated Red Blood Cells % 0 % (-); Platelet Count 327 10^3/uL (130-400); Red Blood Cell Count 3.83 10^6/uL (4.70-6.10); Red Cell Dist. Width 12.1 % (11.5-14.5); White Blood Cell Count 10.8 10^3/uL (4.8-10.8)
[2024-08-28 09:00] LABS: ALT (SGPT) 34 U/L (0-50); AST (SGOT) 30 U/L (17-59); Albumin 3.1 g/dl (3.5-5.0); Alkaline Phosphatase 143 U/L (38-126); Blood Urea Nitrogen 42 mg/dl (9-20); Calcium 8.7 mg/dl (8.4-10.2); Carbon Dioxide 24 mmol/L (22-30); Chloride 110 mmol/L (98-107); Estimated Creatinine Clearance 25 ml/min; Glucose 90 mg/dl (70-99); Potassium 4.9 mmol/L (3.5-5.1); Sodium 141 mmol/L (135-145); Total Bilirubin 0.6 mg/dl (0.2-1.3); Total Protein 5.9 g/dl (6.3-8.2); eGFR 21.87
[2024-08-28] MEDS: NOVOLOG FLEXPEN-LOW RESISTANCE SC ×3 (09:09→17:15)
[2024-08-28] MEDS: ELIQUIS 5 MG PO ×2 (09:09→19:35)
--- NOTE | 2024-08-28 09:10 | W.PN.URO.CBU ---
Today's Communication / Plan
-
d/vc when stable home with luque
Assessment / Plan
-
luque trauma placed 20 fr coude shall follow up with pvt urologist expect bleeding
Diagnosis
-
Date of Service: August 28, 2024
-
Patient Diagnosis:
Post Op Day:
Patient Diagnosis:
Post Op Day:
Patient Diagnosis:bph chronic retntion now hematuroia and luque trauma difficult folry
Post Op Day:
Subjective
-
urine clear
Objective
-
Vital Signs
Temp Pulse Resp BP Pulse Ox
98.3 F 82 16 148/84 98
08/28/24 07:05 08/28/24 07:05 08/28/24 07:05 08/28/24 07:05 08/28/24 07:05
Intake and Output
08/27/24 08/28/24 08/29/24
06:59 06:59 06:59
Intake Total 1200 / 1200 4940 / 4940
Output Total 2200 / 2200 5625 / 5625
Balance -1000 / -1000 -685 / -685
Intake:
Oral fluids 1200 / 1200 1440 / 1440
IV fluids (Total) 3500 / 3500
Output:
Urine, Luque 2200 / 2200 5625 / 5625
Laboratory Results
08/28/24 06:42
08/28/24 06:42
Review of Systems
-
: Difficulty Voiding
Physical Exam
-
General - well developed, well nourished, no acute distress
Chest - clear bilaterally
Abdomen - soft, non-tender, positive bowel sounds, no CVAT, no incisional pain or distention
Genitalia - normal
Rectal - normal
Skin - warm & dry with no rash
Neuro - AOx3, no motor deficits
Extremities - no clubbing, no cyanosis, no edema
Incision - clean, dry
Dressing - clean, dry, intact
[2024-08-28] MEDS: NSS 1000 IV ×2 (09:26→19:35)
--- NOTE | 2024-08-28 10:44 | W.PN.HOSP.TC ---
Today's Communication/Plan
-
monitor vitals
see plan
monitor renal function
cw IVF
neurology to evaluate
hold lisinopril and HCTZ for now
cw eliquis
Assessment / Plan
Assessment / Plan
General: Comfortable and Conversant
HEENT: Anicteric, Moist mucous membranes
Respiratory: Clear and Non Labored Respirations
Cardiac: S1/S2 and Regular Rhythm
GI: Soft and Non Tender
Genito-urinary: Clear Urine and Javier
Musculoskeletal: No Edema
Skin: Other (Chronic lower extremity skin discoloration)
Neuro: Awake, Alert, Oriented and Nonfocal/grossly intact
Psych: Calm
Acute Kidney Injury, possibly related to hypotension
-Nephrology following
-Attempt to obtained records from [facility]
-Hold lisinopril / HCTZ
-Continue IVFs
Admission creatinine, 3.9. Creatinine now 2.9
per patient when he was discharged from [facility] in May his creatinine was 1's
Left Eye Vision Loss possibly secondary to Branch Retinal Artery Occlusion, other differential would include giant cell arteritis in setting of elevated ESR/CRP, however no eye pain
Was seen by ophthalmology prior to coming to the hospital who diagnosed KHAN
will need neurology f/u outpatient
no headache or pain
neurology following
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 MRA noted; some tortuosity, wanted to see neurology opinion
A1c 6.4
-Increase Crestor 40mg Daily
Patient to follow up with rheumatology outpatient
echo without vegetation
UTI
Likely secondary to chronic catheter
Exchange Javier catheter
ucx with pseudomonas; change abx to cefepime
hx of prediabetes per patient
now a1c 6.4 consistent with diabetes
diabetes education
Pulmonary Embolism - May 2024
-Continue Eliquis ; If patient comes off the eliquis then would need 81mg aspirin
Essential Hypertension
-Lisinopril / HCTZ on hold as above
Hyperlipidemia
-Continue Crestor
Chronic Urinary Retention
-Last Javier catheter exchange was over one months - Javier exchanged this admission.
Urology following
DVT proph: Eliquis
Code Status: Full Code
Anticipated Discharge: 24 - 48 hours
Subjective/Interval History
-
Date of Service: August 28, 2024
denies pain
Objective Data
-
Labs:
Laboratory Results
08/28/24
06:42
WBC 10.8
Hgb 11.6 L
Hct 35.1 L
Plt Count 327
Sodium 141
Potassium 4.9
Chloride 110 H
Carbon Dioxide 24
BUN 42 H
Creatinine 2.9 H
Glucose 90
Calcium 8.7
Total Bilirubin 0.6
AST 30
ALT 34
Alkaline Phosphatase 143 H
Vital Signs:
Vital Signs
Temp Pulse Resp BP Pulse Ox
98.3 F 82 16 148/84 98
08/28/24 07:05 08/28/24 07:05 08/28/24 07:05 08/28/24 07:05 08/28/24 07:05
I&O
08/27/24 08/28/24 08/29/24
06:59 06:59 06:59
Intake Total 1200 / 1200 4940 / 4940
Output Total 2200 / 2200 5625 / 5625
Balance -1000 / -1000 -685 / -685
[2024-08-28] MEDS: STERILE WATER FOR INJECTION 10 ML IV ×2 (12:53→23:04)
[2024-08-28] MEDS: MAXIPIME 1000 MG IV ×2 (12:53→23:04)
--- NOTE | 2024-08-28 13:00 | W.PN.NEURO.1 ---
Today's Communication / Plan
-
Continue apixaban long-term
No alterations to anticoagulant therapy at this time
Neuro Assessment/Plan
Assessment
BRAO left eye; most likely thromboembolic despite use of anticoagulant
Plan
Continue apixaban long-term
No alterations to anticoagulant therapy at this time
Will follow as needed
Subjective/Objective
Subjective Data
Date of Service: August 28, 2024
Objective Data
Vital Signs
Temp Pulse Resp BP Pulse Ox
36.8 C 82 16 148/84 98
08/28/24 07:05 08/28/24 07:05 08/28/24 07:05 08/28/24 07:05 08/28/24 09:15
Lab Results
08/28/24 06:42
08/28/24 06:42
APTT 42.5 Sec (23.4-35.0) H 08/25/24 12:59
Sodium 141 mmol/L (135-145) 08/28/24 06:42
Potassium 4.9 mmol/L (3.5-5.1) 08/28/24 06:42
BUN 42 mg/dl (9-20) H 08/28/24 06:42
Glucose 90 mg/dl (70-99) 08/28/24 06:42
Calcium 8.7 mg/dl (8.4-10.2) 08/28/24 06:42
LDL Cholesterol, Calc 44 mg/dl 08/26/24 07:27
Vitamin B12 > 1000 pg/ml (239-931) H 08/27/24 07:40
Patient Allergies
No Known Allergies Allergy (Verified 08/25/24 12:47)
Data Reviewed
-
MRI Head: Report Reviewed
MRA Head: Report Reviewed
MRA Neck: Report Reviewed
Labs: Report Reviewed
Lipid Profile: Report Reviewed
Reviewed with: Physician and Nurse Practioner
Old Records: Summarized
Past History
Past History
ED Past Medical History: HTN, Hypercholesterolemia and Other (Branch retinal artery occlusion August 2024, PE May 2024, urinary retention)
ED Past Surgical History: Appendectomy
Family History
Family History: Other (Reviewed and noncontributory)
Medications
-
Medications:
Generic Name Dose Route Start Last Admin
Trade Name Freq PRN Reason Stop Dose Admin
Acetaminophen 650 mg 08/25/24 18:55
Acetaminophen 325 Mg Tablet PO 09/22/24 18:54
Q4HPRN PRN
mild pain/ fever>100.5F
Apixaban 5 mg 08/25/24 20:00 08/28/24 09:09
Apixaban (Eliquis) 5 Mg Tablet PO 09/22/24 19:59 5 mg
BID ESTHER Administration
Cefepime HCl 1,000 mg 08/28/24 12:00 08/28/24 12:53
Cefepime Hcl 1,000 Mg/11.3 Ml Vial IV 1,000 mg
Q12H ESTHER Administration
Dextrose 12.5 grams 08/26/24 10:48
Dextrose 50% (0.5 Grams/Ml) 50 Ml Syringe IV 09/23/24 10:47
[id number] PRN
hypoglycemia
Protocol
Glucagon 1 mg 08/26/24 10:48
Glucagon 1 Mg Vial IM 09/23/24 10:47
PRN PRN
hypoglycemia
Protocol
Sodium Chloride 1,000 mls @ 100 mls/hr 08/27/24 06:15 08/28/24 09:26
Nss IV 1,000 mls
.Q10H ESTHER Administration
Insulin Aspart 0 units 08/26/24 11:30 08/28/24 12:55
Insulin Aspart Low Resistance 300 Units/3 Ml Pen.Injctr SC 09/23/24 11:29 Not Given
AC ESTHER
Protocol
Rosuvastatin Calcium 40 mg 08/25/24 18:55 08/27/24 18:07
Rosuvastatin (Crestor) 20 Mg Tablet PO 09/22/24 18:54 40 mg
QPM ESTHER Administration
Sodium Chloride 0 flush 08/25/24 20:00
Sodium Chloride 0.9% (Flush) Syringe IV 09/22/24 19:59
PER PROTOCOL ESTHER
Sterile Water 10 ml 08/28/24 12:00 08/28/24 12:53
Sterile Water For Injection 10 Ml Vial IV 09/25/24 11:59 10 ml
Q12H ESTHER Administration
[2024-08-28 14:05] LABS: Glucose - Point of Care 126 mg/dl (70-99)
--- NOTE | 2024-08-28 14:19 | W.PN.NEPH.PH ---
Today's Communication / Plan
-
ivf
Assessment/Plan
-
Assessment
Loss of vision
ZHOU
Chronic Javier for retention
Hypertension
History of pulmonary embolism on anticoagulation
Plan
Acuity likely secondary to hypotension with systolic blood pressure in the 80s on admission
No evidence of retention.
Javier exchanged by urology
Hold lisinopril and hydrochlorothiazide
Echocardiogram on this admission normal LV
Continue IV fluids
Creatinine peaked at 3.9 down to 2.9
Chronic indwelling Javier. Patient states in May 2024 creatinine was as high as 4.9, catheter was exchanged with a creatinine improving to 1.1.
abx =pseudomonas
BMP in the morning
-
-
Date of Service: August 28, 2024
CC / HPI / ROS
-
Chief Complaint:
Acute kidney injury
History of Present Illness:
Acute kidney injury with hypotension chronic indwelling Javier
Review of Systems:.
No chest pain or shortness of breath. Javier catheter chronic indwelling nonoliguric
Labs
-
Labs:
WBC 10.8 10^3/uL (4.8-10.8) 08/28/24 06:42
RBC 3.83 10^6/uL (4.70-6.10) L 08/28/24 06:42
Hgb 11.6 g/dL (13.0-18.0) L 08/28/24 06:42
Hct 35.1 % (39.0-52.0) L 08/28/24 06:42
Plt Count 327 10^3/uL (130-400) 08/28/24 06:42
Sodium 141 mmol/L (135-145) 08/28/24 06:42
Potassium 4.9 mmol/L (3.5-5.1) 08/28/24 06:42
Chloride 110 mmol/L (98-107) H 08/28/24 06:42
Carbon Dioxide 24 mmol/L (22-30) 08/28/24 06:42
BUN 42 mg/dl (9-20) H 08/28/24 06:42
Creatinine 2.9 mg/dL (0.7-1.3) H 08/28/24 06:42
eGFR 21.87 08/28/24 06:42
Glucose 90 mg/dl (70-99) 08/28/24 06:42
Calcium 8.7 mg/dl (8.4-10.2) 08/28/24 06:42
Albumin 3.1 g/dl (3.5-5.0) L 08/28/24 06:42
Physical Exam
-
Vital Signs:
Vital Signs
Temp Pulse Resp BP Pulse Ox
98.3 F 81 16 136/88 99
08/28/24 11:05 08/28/24 11:05 08/28/24 11:05 08/28/24 11:05 08/28/24 11:05
Respiratory:: Bilateral: CTA
Lung Excursion:: Normal
Abdomen:: Soft
Bowel Sounds:: Normal
Extremity Edema:: +1: Bilateral:
Javier Catheter: Yes
[2024-08-28 16:12] LABS: Glucose - Point of Care 119 mg/dl (70-99)
[2024-08-28] MEDS: CRESTOR 40 MG PO (17:16)
[2024-08-28 21:36] LABS: Glucose - Point of Care 109 mg/dl (70-99)
[2024-08-29 03:23] VITALS: BP 150/93
--- NOTE | 2024-08-29 04:28 | DOWNTIME ---
There was a [employer] Downtime on 08/29/2024 from 0100 to 08/30/2023 at 0420 . Downtime documentation of patient's care, including medication administrations, has been reconciled in the electronic record per guidelines. Refer to the
patient's paper chart under the miscellaneous tab to see printed paper medication records and downtime forms.
[2024-08-29 06:34] LABS: % Basophils 0.4 % (0-2); % Eosinophils 2.7 % (0-6); % Immature Granulocytes 0.9 % (0-0.5); % Monocytes 8.9 % (1.7-9.3); % Neutrophils 72.1 % (42.2-75.2); Absolute Basophils 0.1 10^3/uL (0-0.2); Absolute Eosinophils 0.3 10^3/uL (0-0.7); Absolute Immature Granulocytes 0.1 10^3/uL (0-0.05); Absolute Lymphocytes 1.7 10^3/uL (1.2-3.4); Absolute Neutrophils 8.4 10^3/uL (1.4-6.5); Hematocrit 36.3 % (39.0-52.0); Hemoglobin 12.1 g/dL (13.0-18.0); Mean Corp Hgb Conc. 33.3 g/dL (33.0-37.0); Mean Corpuscular Volume 89.9 fL (80.0-94.0); Mean Platelet Volume 10.5 fL (7.4-10.4); Nucleated Red Blood Cells % 0 % (-); Platelet Count 351 10^3/uL (130-400); Red Blood Cell Count 4.04 10^6/uL (4.70-6.10); White Blood Cell Count 11.6 10^3/uL (4.8-10.8)
[2024-08-29 06:46] LABS: ALT (SGPT) 36 U/L (0-50); AST (SGOT) 31 U/L (17-59); Albumin 2.9 g/dl (3.5-5.0); Alkaline Phosphatase 145 U/L (38-126); Blood Urea Nitrogen 43 mg/dl (9-20); Calcium 8.9 mg/dl (8.4-10.2); Carbon Dioxide 19 mmol/L (22-30); Chloride 114 mmol/L (98-107); Estimated Creatinine Clearance 25 ml/min; Glucose 99 mg/dl (70-99); Potassium 4.8 mmol/L (3.5-5.1); Sodium 143 mmol/L (135-145); Total Bilirubin 0.4 mg/dl (0.2-1.3); Total Protein 5.9 g/dl (6.3-8.2); eGFR 21.87
[2024-08-29 07:00] VITALS: BP 148/95
[2024-08-29 07:06] LABS: Glucose - Point of Care 94 mg/dl (70-99)
[2024-08-29] MEDS: NOVOLOG FLEXPEN-LOW RESISTANCE SC ×3 (07:57→16:46)
[2024-08-29] MEDS: ELIQUIS 5 MG PO ×2 (09:02→20:25)
--- NOTE | 2024-08-29 11:20 | W.PN.NEPH.PH ---
Today's Communication / Plan
-
IVF
Assessment/Plan
-
Assessment
Loss of vision
ZHOU
Chronic Javier for retention
Hypertension
History of pulmonary embolism on anticoagulation
Plan
Follow BMP
Holding lisinopril diuretics
IV fluids with bicarbonate
Javier chronic
-
-
Date of Service: August 29, 2024
CC / HPI / ROS
-
Chief Complaint:
Acute kidney injury
History of Present Illness:
ZHOU/creatinine stable at 2.9
New metabolic acidosis 19
Blood pressure stable high
Catheter which was replaced 08/28
Review of Systems:.
No chest pain or shortness of breath
Labs
-
Labs:
WBC 11.6 10^3/uL (4.8-10.8) H 08/29/24 05:30
RBC 4.04 10^6/uL (4.70-6.10) L 08/29/24 05:30
Hgb 12.1 g/dL (13.0-18.0) L 08/29/24 05:30
Hct 36.3 % (39.0-52.0) L 08/29/24 05:30
Plt Count 351 10^3/uL (130-400) 08/29/24 05:30
Sodium 143 mmol/L (135-145) 08/29/24 05:30
Potassium 4.8 mmol/L (3.5-5.1) 08/29/24 05:30
Chloride 114 mmol/L (98-107) H 08/29/24 05:30
Carbon Dioxide 19 mmol/L (22-30) L 08/29/24 05:30
BUN 43 mg/dl (9-20) H 08/29/24 05:30
Creatinine 2.9 mg/dL (0.7-1.3) H 08/29/24 05:30
eGFR 21.87 08/29/24 05:30
Glucose 99 mg/dl (70-99) 08/29/24 05:30
Calcium 8.9 mg/dl (8.4-10.2) 08/29/24 05:30
Albumin 2.9 g/dl (3.5-5.0) L 08/29/24 05:30
Physical Exam
-
Vital Signs:
Vital Signs
Temp Pulse Resp BP Pulse Ox
97.5 F 88 16 148/95 97
08/29/24 07:00 08/29/24 07:00 08/29/24 07:00 08/29/24 07:00 08/29/24 10:00
Cardiovascular:: Regular rate and rhythm
Respiratory:: Bilateral: Coarse
Lung Excursion:: Normal
Abdomen:: Nontender and Soft
Bowel Sounds:: Normal
Extremity Edema:: None: Bilateral:
[2024-08-29 11:23] VITALS: BP 143/96
[2024-08-29 11:37] LABS: Glucose - Point of Care 120 mg/dl (70-99)
--- NOTE | 2024-08-29 11:37 | W.PN.HOSP.TC ---
Today's Communication/Plan
-
monitor vitals
see plan
started IVF with bicarb gtt
monitor renal function
Hopeful DC soon once renal function improve
cw abx
Assessment / Plan
Assessment / Plan
General: Comfortable and Conversant
HEENT: Anicteric, Moist mucous membranes
Respiratory: Clear and Non Labored Respirations
Cardiac: S1/S2 and Regular Rhythm
GI: Soft and Non Tender
Genito-urinary: Clear Urine and Javier
Musculoskeletal: No Edema
Skin: Other (Chronic lower extremity skin discoloration)
Neuro: Awake, Alert, Oriented and Nonfocal/grossly intact
Psych: Calm
Acute Kidney Injury, possibly related to hypotension
-Nephrology following
-Attempt to obtained records from [facility]
-Hold lisinopril / HCTZ
-Continue IVFs, Changed to bicarb drip
Admission creatinine, 3.9. Creatinine now 2.9
per patient when he was discharged from [place] in May his creatinine was 1's
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
Was seen by ophthalmology prior to coming to the hospital who diagnosed KHAN
will need neurology f/u outpatient
no headache or pain
neurology following, think likely embolic and should stay on just eliquis. no aspirin
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 MRA noted; some tortuosity, neurology aware and no further intervention needed
A1c 6.4
-Increase Crestor 40mg Daily
Patient to follow up with rheumatology outpatient
echo without vegetation
UTI
Likely secondary to chronic catheter
Exchange Javier catheter
ucx with pseudomonas, another gram neg rods; cw cefepime for now, likely can transition to cipro soon
hx of prediabetes per patient
now a1c 6.4 consistent with diabetes
diabetes education
Pulmonary Embolism - May 2024
-Continue Eliquis
Essential Hypertension
-Lisinopril / HCTZ on hold as above
Hyperlipidemia
-Continue Crestor
Chronic Urinary Retention
-Last Javier catheter exchange was over one month - Javier exchanged this admission.
Urology following
DVT proph: Eliquis
Code Status: Full Code
Anticipated Discharge: 24 - 48 hours
Subjective/Interval History
-
Date of Service: August 29, 2024
denies pain
Objective Data
-
Labs:
Laboratory Results
08/29/24
05:30
WBC 11.6 H
Hgb 12.1 L
Hct 36.3 L
Plt Count 351
Sodium 143
Potassium 4.8
Chloride 114 H
Carbon Dioxide 19 L
BUN 43 H
Creatinine 2.9 H
Glucose 99
Calcium 8.9
Total Bilirubin 0.4
AST 31
ALT 36
Alkaline Phosphatase 145 H
Vital Signs:
Vital Signs
Temp Pulse Resp BP Pulse Ox
97.8 F 93 16 143/96 100
08/29/24 11:23 08/29/24 11:23 08/29/24 11:23 08/29/24 11:23 08/29/24 11:23
I&O
08/28/24 08/29/24 08/30/24
06:59 06:59 06:59
Intake Total 4940 / 4940 1380 / 1380 300 / 300
Output Total 5625 / 5625 4100 / 4100 800 / 800
Balance -685 / -685 -2720 / -2720 -500 / -500
[2024-08-29] MEDS: SODIUM BICARBONATE 1150 MEQ IV (12:36)
[2024-08-29] MEDS: STERILE WATER FOR INJECTION 10 ML IV ×2 (13:04→23:47)
[2024-08-29] MEDS: MAXIPIME 1000 MG IV ×2 (13:04→23:45)
[2024-08-29] MEDS: NSS IV ×2 (13:26→13:27)
--- NOTE | 2024-08-29 13:36 | W.PN.URO.CBU ---
Today's Communication / Plan
-
no gu changes
Assessment / Plan
-
luque trauma placed 20 fr coude shall follow up with pvt urologist expect bleeding
Diagnosis
-
Date of Service: August 29, 2024
-
Patient Diagnosis:
Post Op Day:
Patient Diagnosis:
Post Op Day:
Patient Diagnosis:
Post Op Day:
Patient Diagnosis:bph chronic retntion now hematuroia and luque trauma difficult folry
Post Op Day:
Subjective
-
no new gu problems
Objective
-
Vital Signs
Temp Pulse Resp BP Pulse Ox
97.8 F 93 16 143/96 100
08/29/24 11:23 08/29/24 11:23 08/29/24 11:23 08/29/24 11:23 08/29/24 11:23
Intake and Output
08/28/24 08/29/24 08/30/24
06:59 06:59 06:59
Intake Total 4940 / 4940 1380 / 1380 300 / 300
Output Total 5625 / 5625 4100 / 4100 800 / 800
Balance -685 / -685 -2720 / -2720 -500 / -500
Intake:
Oral fluids 1440 / 1440 1380 / 1380 300 / 300
IV fluids (Total) 3500 / 3500
Output:
Urine, Luque 5625 / 5625 4100 / 4100 800 / 800
Laboratory Results
08/29/24 05:30
08/29/24 05:30
Review of Systems
-
: Difficulty Voiding and Dark Urine
Physical Exam
-
General - well developed, well nourished, no acute distress
Chest - clear bilaterally
Abdomen - soft, non-tender, positive bowel sounds, no CVAT, no incisional pain or distention
Genitalia - normal
Rectal - normal
Skin - warm & dry with no rash
Neuro - AOx3, no motor deficits
Extremities - no clubbing, no cyanosis, no edema
Incision - clean, dry
Dressing - clean, dry, intact
[2024-08-29 15:27] VITALS: BP 150/91
[2024-08-29 16:38] LABS: Glucose - Point of Care 125 mg/dl (70-99)
[2024-08-29] MEDS: CRESTOR 40 MG PO (18:25)
[2024-08-29 19:30] VITALS: BP 132/97
[2024-08-29 22:20] LABS: Glucose - Point of Care 114 mg/dl (70-99)
[2024-08-29 23:50] VITALS: BP 151/92
[2024-08-30 03:55] VITALS: BP 151/91
[2024-08-30] MEDS: SODIUM BICARBONATE 1150 MEQ IV (04:02)
[2024-08-30 07:27] VITALS: BP 150/127
[2024-08-30 07:27] LABS: ALT (SGPT) 33 U/L (0-50); AST (SGOT) 30 U/L (17-59); Alkaline Phosphatase 150 U/L (38-126); Blood Urea Nitrogen 42 mg/dl (9-20); Calcium 8.9 mg/dl (8.4-10.2); Carbon Dioxide 28 mmol/L (22-30); Chloride 107 mmol/L (98-107); Estimated Creatinine Clearance 23 ml/min; Glucose 101 mg/dl (70-99); Sodium 143 mmol/L (135-145); Total Bilirubin 0.5 mg/dl (0.2-1.3); eGFR 20.19
[2024-08-30 07:36] LABS: % Basophils 0.3 % (0-2); % Eosinophils 2.7 % (0-6); % Immature Granulocytes 0.8 % (0-0.5); % Lymphocytes 14.8 % (20.5-51.1); % Monocytes 10.8 % (1.7-9.3); % Neutrophils 70.6 % (42.2-75.2); Absolute Eosinophils 0.3 10^3/uL (0-0.7); Absolute Immature Granulocytes 0.1 10^3/uL (0-0.05); Absolute Lymphocytes 1.5 10^3/uL (1.2-3.4); Absolute Monocytes 1.1 10^3/uL (0.1-0.6); Absolute Neutrophils 7.2 10^3/uL (1.4-6.5); Hematocrit 34.5 % (39.0-52.0); Hemoglobin 11.6 g/dL (13.0-18.0); Mean Corp Hgb Conc. 33.6 g/dL (33.0-37.0); Mean Corpuscular Hgb 30.2 pg (27.0-31.0); Mean Corpuscular Volume 89.8 fL (80.0-94.0); Mean Platelet Volume 10.2 fL (7.4-10.4); Nucleated Red Blood Cells % 0 % (-); Platelet Count 355 10^3/uL (130-400); Red Blood Cell Count 3.84 10^6/uL (4.70-6.10); White Blood Cell Count 10.1 10^3/uL (4.8-10.8)
[2024-08-30 08:12] LABS: Glucose - Point of Care 176 mg/dl (70-99)
--- NOTE | 2024-08-30 08:15 | W.PN.URO.CBU ---
Today's Communication / Plan
-
hand irrigate pt]rn no flow or major clots expect bleeding
Assessment / Plan
-
luque trauma placed 20 fr coude shall follow up with pvt urologist expect bleeding creatinine sl up 3.1
Diagnosis
-
Date of Service: August 30, 2024
-
Patient Diagnosis:
Post Op Day:
Patient Diagnosis:
Post Op Day:
Patient Diagnosis:
Post Op Day:
Patient Diagnosis:
Post Op Day:
Patient Diagnosis:bph chronic retntion now hematuroia and luque trauma difficult folry
Post Op Day:
Subjective
-
on anticoagulants mild hematuria min clots this am
Objective
-
Vital Signs
Temp Pulse Resp BP Pulse Ox
98 F 84 18 151/91 98
08/30/24 03:55 08/30/24 03:55 08/30/24 03:55 08/30/24 03:55 08/30/24 03:55
Intake and Output
08/29/24 08/30/24 08/31/24
06:59 06:59 06:59
Intake Total 1380 / 1380 1020 / 1020
Output Total 4100 / 4100 4050 / 4050
Balance -2720 / -2720 -3030 / -3030
Intake:
Oral fluids 1380 / 1380 1020 / 1020
Output:
Urine, Luque 4100 / 4100 3350 / 3350
Urine, Voided 700 / 700
Laboratory Results
08/30/24 06:36
08/30/24 06:36
Review of Systems
-
: Difficulty Voiding and Bleeding
Physical Exam
-
General - well developed, well nourished, no acute distress
Chest - clear bilaterally
Abdomen - soft, non-tender, positive bowel sounds, no CVAT, no incisional pain or distention
Genitalia - normal
Rectal - normal
Skin - warm & dry with no rash
Neuro - AOx3, no motor deficits
Extremities - no clubbing, no cyanosis, no edema
Incision - clean, dry
Dressing - clean, dry, intact
Care Review
Data Reviewed
Discussed with: Nursing
[2024-08-30] MEDS: ELIQUIS 5 MG PO ×2 (08:21→20:35)
[2024-08-30] MEDS: NOVOLOG FLEXPEN-LOW RESISTANCE 1 UNITS SC (08:21)
[2024-08-30 11:45] VITALS: BP 152/93
[2024-08-30 12:09] LABS: Glucose - Point of Care 90 mg/dl (70-99)
[2024-08-30] MEDS: NOVOLOG FLEXPEN-LOW RESISTANCE SC ×2 (12:13→16:44)
[2024-08-30] MEDS: MAXIPIME 1000 MG IV (12:14)
[2024-08-30] MEDS: STERILE WATER FOR INJECTION 10 ML IV (12:14)
--- NOTE | 2024-08-30 12:29 | W.PN.NEPH.PH ---
Today's Communication / Plan
-
Stop IV fluids
Assessment/Plan
-
Assessment
Loss of vision
ZHOU
Chronic Javier for retention
Hypertension
History of pulmonary embolism on anticoagulation
Plan
Follow BMP
Holding lisinopril diuretics
Stop IV fluids
Javier chronic
-
-
Date of Service: August 30, 2024
CC / HPI / ROS
-
Chief Complaint:
Acute kidney injury
History of Present Illness:
ZHOU/creatinine slightly higher at 3.9
metabolic acidosis improved
Blood pressure stable high
Javier catheter which was replaced 08/28
Review of Systems:.
No chest pain or shortness of breath
Labs
-
Labs:
WBC 10.1 10^3/uL (4.8-10.8) 08/30/24 06:36
RBC 3.84 10^6/uL (4.70-6.10) L 08/30/24 06:36
Hgb 11.6 g/dL (13.0-18.0) L 08/30/24 06:36
Hct 34.5 % (39.0-52.0) L 08/30/24 06:36
Plt Count 355 10^3/uL (130-400) 08/30/24 06:36
Sodium 143 mmol/L (135-145) 08/30/24 06:36
Potassium 5.0 mmol/L (3.5-5.1) 08/30/24 06:36
Chloride 107 mmol/L (98-107) 08/30/24 06:36
Carbon Dioxide 28 mmol/L (22-30) 08/30/24 06:36
BUN 42 mg/dl (9-20) H 08/30/24 06:36
Creatinine 3.1 mg/dL (0.7-1.3) H 08/30/24 06:36
eGFR 20.19 08/30/24 06:36
Glucose 101 mg/dl (70-99) H 08/30/24 06:36
Calcium 8.9 mg/dl (8.4-10.2) 08/30/24 06:36
Albumin 3.0 g/dl (3.5-5.0) L 08/30/24 06:36
Physical Exam
-
Vital Signs:
Vital Signs
Temp Pulse Resp BP Pulse Ox
98.5 F 84 18 152/93 99
08/30/24 11:45 08/30/24 11:45 08/30/24 11:45 08/30/24 11:45 08/30/24 11:45
Cardiovascular:: Regular rate and rhythm
Respiratory:: Bilateral: Coarse
Lung Excursion:: Normal
Abdomen:: Nontender and Soft
Bowel Sounds:: Normal
Extremity Edema:: None: Bilateral:
--- NOTE | 2024-08-30 13:08 | PN.CDI ---
CDI
- -
CDI:
Physician Documentation Request
Admit Date: 08/25/24 16:58
Dear Doctor Lyudmila,
Please review the following and provide your response in the progress notes.
Clinical Indicators:
PN, 08/29
#Acute Kidney Injury, possibly related to hypotension
#...-Hold lisinopril / HCTZ
#...-Continue IVFs, Changed to bicarb drip
#Admission creatinine, 3.9. Creatinine now 2.9
#per patient when he was discharged from [place] in May his creatinine was 1's
#...hx of prediabetes per patient
#...now a1c 6.4 consistent with diabetes
Laboratory Tests
08/25/24 08/26/24 08/27/24
12:59 07:27 07:40
Creatinine 3.9 H 3.3 H 3.1 H
eGFR 15.33 18.73 20.19
08/28/24 08/29/24 08/30/24
06:42 05:30 06:36
Creatinine 2.9 H 2.9 H 3.1 H
eGFR 21.87 21.87 20.19
Laboratory Tests
08/26/24
07:27
Hemoglobin A1c 6.4 H
Based on the above and your clinical assessment, please clarify the appropriate diagnosis, if significant, that supports the above abnormalities and additional evaluation, monitoring and/or treatment rendered:
ZHOU with ATN
ZHOU only
Other(please specify)
Use of terms such as suspected, likely, concern for, or probable (associated with a specific diagnosis that is being evaluated, monitored, or treated as if it exists) are acceptable and can be coded in the inpatient setting, when documented at the
time of discharge.
Thank you,
Jany Palma RN BSN CCDS
CDI Specialist
please contact via tiger text
Please use your independent medical judgment in providing your response.
--- NOTE | 2024-08-30 14:48 | W.PN.HOSP.TC ---
Today's Communication/Plan
-
Javier catheter had been replaced with ongoing hematuria secondary to urethral trauma with no evidence of clot retention. Discussed with urology
Hemoglobin hopefully plateaued at 3.1. Observe off IV fluids.
Assessment / Plan
Assessment / Plan
Acute Kidney Injury, possibly related to hypotension
-Nephrology following
-Attempt to obtained records from [facility]
-Hold lisinopril / HCTZ
-Plan is to observe off IV fluids as of 08/30
Admission creatinine, 3.9. Creatinine now 2.9
per patient when he was discharged from [place] in May his creatinine was 1's
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
Was seen by ophthalmology prior to coming to the hospital who diagnosed KHAN
will need neurology f/u outpatient
no headache or pain
neurology following, think likely embolic and should stay on just eliquis. no aspirin
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 MRA noted; some tortuosity, neurology aware and no further intervention needed
Echocardiogram with preserved biventricular function and no evidence for [id number] shunt
A1c 6.4
-Increase Crestor 40mg Daily
Patient to follow up with rheumatology and hematology as of
UTI
Likely secondary to chronic catheter
Exchange Javier catheter
ucx with pseudomonas, another gram neg rods; cw cefepime for now, likely can transition to cipro soon
hx of prediabetes per patient
now a1c 6.4 consistent with diabetes
diabetes education
Pulmonary Embolism - May 2024
-Continue Eliquis
Essential Hypertension
-Lisinopril / HCTZ on hold as above
Hyperlipidemia
-Continue Crestor
Chronic Urinary Retention
-Last Javier catheter exchange was over one month - Javier exchanged this admission.
Urology following
DVT proph: Eliquis
Code Status: Full Code
Anticipated Discharge: Within 24 hours
Subjective/Interval History
-
Date of Service: August 30, 2024
Objective Data
-
Labs:
Laboratory Results
08/30/24
06:36
WBC 10.1
Hgb 11.6 L
Hct 34.5 L
Plt Count 355
Sodium 143
Potassium 5.0
Chloride 107
Carbon Dioxide 28
BUN 42 H
Creatinine 3.1 H
Glucose 101 H
Calcium 8.9
Total Bilirubin 0.5
AST 30
ALT 33
Alkaline Phosphatase 150 H
Vital Signs:
Vital Signs
Temp Pulse Resp BP Pulse Ox
98.5 F 84 18 152/93 99
08/30/24 11:45 08/30/24 11:45 08/30/24 11:45 08/30/24 11:45 08/30/24 11:45
I&O
08/29/24 08/30/24 08/31/24
06:59 06:59 06:59
Intake Total 1380 / 1380 1020 / 1020
Output Total 4100 / 4100 4050 / 4050
Balance -2720 / -2720 -3030 / -3030
Physical Exam
-
General: Well Developed and No Apparent Distress
HEENT: Normocephalic, Atraumatic and Moist Mucous Membranes
Respiratory: Clear to Auscultation
Cardiac: Regular Rhythm and S1/S2; Negative Murmur, Rub or Gallop
GI: Soft, Nontender, Nondistended and Normal Bowel Sounds; Negative Organomegaly
Rectal: Deferred by Provider
Genito-urinary: Javier
Musculoskeletal: No Clubbing, No Cyanosis and No Edema
Skin: Negative Rash
Neuro: Nonfocal/Grossly Intact
[2024-08-30 15:46] VITALS: BP 134/86
[2024-08-30 16:37] LABS: Glucose - Point of Care 123 mg/dl (70-99)
[2024-08-30] MEDS: CRESTOR 40 MG PO (17:38)
[2024-08-30 19:36] VITALS: BP 127/87
[2024-08-30 21:48] LABS: Glucose - Point of Care 132 mg/dl (70-99)
[2024-08-30 23:24] VITALS: BP 123/83
[2024-08-31] MEDS: MAXIPIME 1000 MG IV ×2 (00:28→12:35)
[2024-08-31] MEDS: STERILE WATER FOR INJECTION 10 ML IV ×2 (00:28→12:36)
[2024-08-31 03:53] VITALS: BP 140/82
[2024-08-31 06:18] LABS: % Basophils 0.3 % (0-2); % Eosinophils 1.8 % (0-6); % Immature Granulocytes 1.1 % (0-0.5); % Lymphocytes 14.5 % (20.5-51.1); % Monocytes 10.8 % (1.7-9.3); % Neutrophils 71.5 % (42.2-75.2); Absolute Eosinophils 0.2 10^3/uL (0-0.7); Absolute Immature Granulocytes 0.1 10^3/uL (0-0.05); Absolute Lymphocytes 1.5 10^3/uL (1.2-3.4); Absolute Monocytes 1.1 10^3/uL (0.1-0.6); Absolute Neutrophils 7.4 10^3/uL (1.4-6.5); Hemoglobin 11.3 g/dL (13.0-18.0); Mean Corp Hgb Conc. 33.2 g/dL (33.0-37.0); Mean Corpuscular Hgb 29.8 pg (27.0-31.0); Mean Corpuscular Volume 89.7 fL (80.0-94.0); Mean Platelet Volume 9.9 fL (7.4-10.4); Nucleated Red Blood Cells % 0 % (-); Platelet Count 349 10^3/uL (130-400); Red Blood Cell Count 3.79 10^6/uL (4.70-6.10); Red Cell Dist. Width 12.2 % (11.5-14.5); White Blood Cell Count 10.3 10^3/uL (4.8-10.8)
[2024-08-31 06:43] LABS: ALT (SGPT) 31 U/L (0-50); AST (SGOT) 28 U/L (17-59); Albumin 2.8 g/dl (3.5-5.0); Alkaline Phosphatase 145 U/L (38-126); Blood Urea Nitrogen 48 mg/dl (9-20); Calcium 8.8 mg/dl (8.4-10.2); Carbon Dioxide 24 mmol/L (22-30); Chloride 108 mmol/L (98-107); Estimated Creatinine Clearance 23 ml/min; Glucose 100 mg/dl (70-99); Potassium 4.5 mmol/L (3.5-5.1); Sodium 141 mmol/L (135-145); Total Bilirubin 0.4 mg/dl (0.2-1.3); Total Protein 5.5 g/dl (6.3-8.2); eGFR 20.19
[2024-08-31 07:05] VITALS: BP 148/85
[2024-08-31 08:07] LABS: Glucose - Point of Care 121 mg/dl (70-99)
[2024-08-31] MEDS: NOVOLOG FLEXPEN-LOW RESISTANCE SC ×2 (09:36→11:53)
[2024-08-31] MEDS: ELIQUIS 5 MG PO (09:37)
[2024-08-31 11:00] VITALS: BP 131/88
[2024-08-31 11:33] VITALS: BP 131/88
[2024-08-31 11:45] LABS: Glucose - Point of Care 108 mg/dl (70-99)
--- NOTE | 2024-08-31 12:04 | W.DS.TRANS ---
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
-
Discharge Instructions:
Discharge Diagnosis/Procedures Retinal artery occlusion.
Acute kidney injury
Diet Low Cholesterol
Blood Work BMP on 09/07
Instructions:
Stand-Alone Forms:
Changes to Home Medications: Yes
Discharge Medications:
DC Medications w/original date entered in [email or web address]
apixaban 5 mg tablet (Eliquis) 5 mg PO BID Blood Clot Prevention/Tx 08/25/24
bisacodyl 5 mg tablet,delayed release (Dulcolax (bisacodyl)) 5 mg PO DAILYPRN PRN constipation 08/25/24
therapeutic multivitamin 1 tab PO DAILY Supplement 08/25/24
ciprofloxacin HCl 500 mg tablet (Cipro) 500 mg PO DAILY #5 tabs 08/31/24
rosuvastatin 20 mg tablet 40 mg (2 x 20 mg) PO QPM #30 tabs 08/31/24
Home Medication Changes
Stop Lisinopril HCTZ.
Cipro for additional 5 days
Pending Results: No
--- NOTE | 2024-08-31 13:16 | W.PN.NEPH.PH ---
Today's Communication / Plan
-
Okay for discharge from renal standpoint
Assessment/Plan
-
Assessment
Loss of vision
ZHOU
Chronic Javier for retention
Hypertension
History of pulmonary embolism on anticoagulation
Plan
Follow BMP
Continue to hold ALISSA inhibitor on discharge
Stop IV fluids
Javier chronic
Creatinine stable okay for discharge from renal standpoint
-
-
Date of Service: August 31, 2024
CC / HPI / ROS
-
Chief Complaint:
Acute kidney injury
History of Present Illness:
ZHOU/creatinine slightly higher at 3.9
metabolic acidosis improved
Blood pressure stable high
Javier catheter which was replaced 08/28
Review of Systems:.
No chest pain or shortness of breath
Labs
-
Labs:
WBC 10.3 10^3/uL (4.8-10.8) 08/31/24 05:30
RBC 3.79 10^6/uL (4.70-6.10) L 08/31/24 05:30
Hgb 11.3 g/dL (13.0-18.0) L 08/31/24 05:30
Hct 34.0 % (39.0-52.0) L 08/31/24 05:30
Plt Count 349 10^3/uL (130-400) 08/31/24 05:30
Sodium 141 mmol/L (135-145) 08/31/24 05:30
Potassium 4.5 mmol/L (3.5-5.1) 08/31/24 05:30
Chloride 108 mmol/L (98-107) H 08/31/24 05:30
Carbon Dioxide 24 mmol/L (22-30) 08/31/24 05:30
BUN 48 mg/dl (9-20) H 08/31/24 05:30
Creatinine 3.1 mg/dL (0.7-1.3) H 08/31/24 05:30
eGFR 20.19 08/31/24 05:30
Glucose 100 mg/dl (70-99) H 08/31/24 05:30
Calcium 8.8 mg/dl (8.4-10.2) 08/31/24 05:30
Albumin 2.8 g/dl (3.5-5.0) L 08/31/24 05:30
Physical Exam
-
Vital Signs:
Vital Signs
Temp Pulse Resp BP Pulse Ox
98.4 F 89 13 131/88 93
08/31/24 11:00 08/31/24 11:00 08/31/24 11:00 08/31/24 11:00 08/31/24 11:00
Cardiovascular:: Regular rate and rhythm
Respiratory:: Bilateral: Coarse
Lung Excursion:: Normal
Abdomen:: Nontender and Soft
Bowel Sounds:: Normal
Extremity Edema:: None: Bilateral:
--- NOTE | 2024-08-31 14:22 | CM ---
CM reviewed medical records. Plan for discharge to home today.
[2024-08-31 15:28] VITALS: BP 112/71
== END 2024-08-31 16:36 | disposition home or self-care (01) | DRG 683 ==
LOC: 4 EAST ACU 16:58
PROVIDERS: Internal Medicine; Physician Assistant; Physician Assistant Medical; ADMITTING PHYSICIAN Hospitalist; ATTENDING PHYSICIAN Internal Medicine; CONSULT PHYSICIAN Psychiatry & Neurology Clinical Neurophysiology; CONSULT PHYSICIAN Specialist; EMERGENCY PHYSICIAN Emergency Medicine; FAMILY PHYSICIAN Family Medicine
DX: N17.0 Acute kidney failure with tubular necrosis (principal); E87.20 Acidosis, unspecified; T83.511A Infection and inflammatory reaction due to indwelling urethral catheter, initial encounter; H34.232 Retinal artery branch occlusion, left eye; N39.0 Urinary tract infection, site not specified; B96.5 Pseudomonas (aeruginosa) (mallei) (pseudomallei) as the cause of diseases classified elsewhere; R73.03 Prediabetes; I10 Essential (primary) hypertension; E78.00 Pure hypercholesterolemia, unspecified; Z86.73 Personal history of transient ischemic attack (TIA), and cerebral infarction without residual deficits; R31.0 Gross hematuria; Z86.711 Personal history of pulmonary embolism; Z86.718 Personal history of other venous thrombosis and embolism; Z79.01 Long term (current) use of anticoagulants; N40.1 Benign prostatic hyperplasia with lower urinary tract symptoms; R33.8 Other retention of urine; H54.62 Unqualified visual loss, left eye, normal vision right eye; Y73.1 Therapeutic (nonsurgical) and rehabilitative gastroenterology and urology devices associated with adverse incidents
CPT/HCPCS: 51798; 70450; 70544; 70548; 70551; 80053; 80061; 81003; 81015; 82248; 82570; 82607; 82728; 82746; 82962; 83036; 84300; 84443; 85025; 85027; 85652; 85730; 86140; 87077; 87086; 87088; 87186; 93005; 93306; 96360; 96361; 97162; 97530; 99285; A9585

== ENCOUNTER 2024-09-22 03:28 | Inpatient (IN) | payer OTHER, SELFPAY ==
[2024-09-21] VITALS (14 sets, daily range): BP systolic 91–113; BP diastolic 61–74; BMI 32.8
[2024-09-21 17:42] LABS: % Basophils 0.2 % (0-2); % Eosinophils 0.2 % (0-6); % Immature Granulocytes 1.2 % (0-0.5); % Lymphocytes 7.1 % (20.5-51.1); % Monocytes 5.6 % (1.7-9.3); % Neutrophils 85.7 % (42.2-75.2); Absolute Immature Granulocytes 0.1 10^3/uL (0-0.05); Absolute Lymphocytes 0.6 10^3/uL (1.2-3.4); Absolute Monocytes 0.5 10^3/uL (0.1-0.6); Absolute Neutrophils 7.4 10^3/uL (1.4-6.5); Hematocrit 24.6 % (39.0-52.0); Hemoglobin 8.2 g/dL (13.0-18.0); Mean Corp Hgb Conc. 33.3 g/dL (33.0-37.0); Mean Corpuscular Hgb 30.5 pg (27.0-31.0); Mean Corpuscular Volume 91.4 fL (80.0-94.0); Mean Platelet Volume 9.8 fL (7.4-10.4); Nucleated Red Blood Cells % 0 % (-); Platelet Count 405 10^3/uL (130-400); Red Blood Cell Count 2.69 10^6/uL (4.70-6.10); Red Cell Dist. Width 13.8 % (11.5-14.5); White Blood Cell Count 8.6 10^3/uL (4.8-10.8)
--- NOTE | 2024-09-21 17:53 | ED.GENMED ---
History of Present Illness
General
Chief Complaint: Blood Pressure Problem
Source: patient
Time Seen by Provider: 09/21/24 17:18
History of Present Illness
History of Present Illness:
This patient is a 73-year-old male presents emergency department because he was noted to have a low-grade fever associated with hypotension. Patient states he just feels tired, but otherwise he denies any specific complaints. He was unaware he had
a fever. He denies cough, sore throat, rhinorrhea, headache, photophobia, neck pain, chest pain, dyspnea, abdominal pain, anorexia, nausea, vomiting, skin changes, or other complaints. Of note, patient was recently admitted developed acute renal
failure and as result had bilateral nephrostomy tubes placed. He denies back or flank pain.
Past History
Past History
ED Past Medical History: HTN, Hypercholesterolemia and Other (Branch retinal artery occlusion August 2024, PE May 2024, urinary retention)
ED Past Surgical History: Appendectomy and Urological
Social History
Tobacco: Non-smoker
Alcohol: None
Drug: None
Personal:
Family History
Family History: Other (Reviewed and noncontributory)
Phy Exam
Physical Exam
Physical Exam:
GENERAL: Alert , in no apparent distress
EYE: pupils equal and reactive, no photophobia
NECK: Supple, no significant adenopathy.
ENT: o/p clr, mmm.
CARDIAC: Regular rate and rhythm .
LUNGS: Clear breath sounds bilaterally, no acute respiratory distress, no wheezes/rales/rhonchi
ABDOMEN: Soft, without focal tenderness, no r/g
NEUROLOGICAL: Alert and oriented, le weakness bilat 4/5, ue 4+/5 bilat, sens intact, cn2-12 intact
SKIN: Warm and dry, skin intact.
MUSCULOSKELETAL: No edema, well perfused.
PSYCH: Normal and appropriate interaction.
BACK: nephro tube sites without redness/warmth/drainage
Sepsis
Sepsis Screening
Sepsis Assessment: Severe Sepsis
Sepsis Screening: Lactate >2mmol/L and Hypotension
Sepsis Screen
Sepsis Screen: Severe Sepsis
Date: 09/21/24
Time: 20:32
Course
Orders/Labs/Results
Orders:
Orders
09/21/24 17:13
Electrocardiogram (*1) Urgent
Reason for Study: Vertigo / Dizzy
09/21/24 17:14
EKG- Treatment ONCE
09/21/24 17:34
Complete Blood Count/With Diff Urgent
Comprehensive Metabolic Panel Urgent
Lactic Acid Urgent
Blood Culture Urgent
ERIC Source: Blood/Venous
Specimen Description:
09/21/24 17:50
0.9% Sodium Chloride 1000 ml [Nss] 2,100 ml IV NOW STA
09/21/24 17:56
Acetaminophen [Tylenol] 1,000 mg PO NOW STA
09/21/24 18:12
US Kidneys and US Bladder [US Renal With Bladder] Urgent
Comment:
Reason For Exam: sepsis
09/21/24 18:16
Urinalysis Reflex To Culture Urgent
Date Specimen was Collected: 09/21/24
Time Specimen was Collected: 20:27
Aztreonam [Azactam] 2,000 mg IV NOW STA
09/21/24 18:23
Sterile Water [Sterile Water For Injection] 10 ml .ROUTE .STK-MED ONE
09/21/24 18:42
COVID-19 Antigen Urgent
Source: Nasal Swab
Influenza A+B Rapid Molecular Urgent
ERIC Source: Nasal Swab
Specimen Description:
09/21/24 20:15
Lactated Ringers [Lr] 500 ml IV 120 mls/hr
09/21/24 21:30
Lactic Acid Urgent
Abnormal Lab Results
09/21/24
17:34
RBC 2.69 L 10^6/uL
(4.70-6.10)
Hgb 8.2 L g/dL
(13.0-18.0)
Hct 24.6 L %
(39.0-52.0)
Plt Count 405 H 10^3/uL
(130-400)
Abs Immat Gran (auto) 0.1 H 10^3/uL
(0-0.05)
Absolute Neuts (auto) 7.4 H 10^3/uL
(1.4-6.5)
Absolute Lymphs (auto) 0.6 L 10^3/uL
(1.2-3.4)
Immature Gran % 1.2 H %
(0-0.5)
Neutrophils % 85.7 H %
(42.2-75.2)
Lymphocytes % 7.1 L %
(20.5-51.1)
BUN 28 H mg/dl
(9-20)
Creatinine 1.8 H mg/dL
(0.7-1.3)
Glucose 121 H mg/dl
(70-99)
Lactic Acid 2.3 H mmol/L
(0.7-2.0)
Calcium 8.3 L mg/dl
(8.4-10.2)
Alkaline Phosphatase 171 H U/L
(38-126)
Total Protein 6.1 L g/dl
(6.3-8.2)
Albumin 3.0 L g/dl
(3.5-5.0)
09/21/24 17:34
09/21/24 17:34
Vital Signs
Initial and Last Documented VS:
Initial Vital Signs
Temp Pulse Resp BP Pulse Ox
100.8 F H 110 14 107/74 96
09/21/24 17:11 09/21/24 17:11 09/21/24 17:11 09/21/24 17:11 09/21/24 17:11
Last Documented Vital Signs
Temp Pulse Resp BP Pulse Ox
99.3 F 98 15 109/71 94
09/21/24 19:55 09/21/24 19:45 09/21/24 19:45 09/21/24 19:30 09/21/24 19:30
*Critical Care Note
Total Time (30-74mins, 75-104mins- exclusive of procedures): 32
Update Note
Update Note:
Patient presents to the Emergency Department with ___fever, hypotension
Number and Complexity of Problems Addressed at the Encounter
� Chronic conditions affecting care:
� Acute Exacerbation and/or Progression of Chronic Illness:
� Differential Diagnosis includes: but not limited to urosepsis, renal failure, pna, etc etc etc
Amount and/or Complexity of Data to be Reviewed and Analyzed
� I performed an independent evaluation of and my interpretation is:
EKG:
CT:
Xrays:
Laboratory Studies:worsening anemia at 8.2, mild thrombocytosis, nl wbc count wiht L shift. Creatinine improved compared to prior
Other:us There is bilateral nephrostomy tubes with mild prominence of the collecting systems.
There is a 3.9 x 3.1 x 3.6 cm lesion along the lower pole the right kidney which may represent complex cyst. Further evaluation with CT or MRI may be considered.
There is diffuse urinary bladder wall thickening with a focal 1.8 x 1.9 cm nodular focus which may represent a mass. Consider direct visualization for further evaluation.
Layering echogenic focus within the inferior aspect of the urinary bladder which may represent debris in the setting of infection. Blood products could also appear similar.
� Review of other/old records reveals: Patient was admitted with acute urinary retention and renal failure, urology placed a coud� which relieved the retention. Creatinine had improved by the time he was discharged. I also
reviewed urine culture from August 25 which had 2 organisms. Antibiotic ordered today consistent with sensitivities.
� Clinical information was obtained by an independent historian:
� Prescriptions/Medications Considered but not given:
� Further testing considered but not performed:
Risk of Complications and/or Morbidity or Mortality of Patient Management
� Social determinants of health affecting care:
� Discussion with other providers (PCP, Hospitalists, Consultants, etc):
� Escalation of care including admission/observation vs risk of discharge considered:6:14 PM patient awake and alert nontoxic appearing. Ultrasound of kidneys ordered.
716pm BP normalized.
8:31 PM blood pressure remained stable, patient is awake alert lucid and comfortable. Family at bedside, long discussion with them regarding likely early sepsis likely urosepsis, plan of care, etc. Case was also discussed with Dr. Meneses
agrees with management. If severe hydro noted patient would need to be changed however ultrasound not consistent with severe hydro.
ED Attending Note
-
Portions of this chart may have been created with voice recognition software.� Occasional wrong word or��sound alike� substitutions may have occurred due to the inherent limitations of voice recognition software.
Discharge Plan
Departure
Patient Disposition: Admit
Date of Disposition: 09/21/24
Time of Disposition: 20:32
Presentation/result/management discussed w/ accepting MD/DO: Hospitalist
Condition: Fair
Discharge Problem:
urosepsis
Prescriptions:
No Action
therapeutic multivitamin Tablet
1 tab PO DAILY
bisacodyl [Dulcolax (bisacodyl)] 5 mg Tablet,Delayed Release (Dr/Ec)
5 mg PO DAILYPRN PRN (Reason: constipation)
Eliquis 5 mg Tablet
5 mg PO BID
ciprofloxacin HCl [Cipro] 500 mg tablet
500 mg PO DAILY Qty: 5 0RF
rosuvastatin [Crestor] 40 mg tablet
40 mg PO DAILY Qty: 30 0RF
Referrals:
UNKNOWN - PT DOES,NOT KNOW [Unknown Provider] -
Interventions
Interventions:
*Risk Screen - Suicide Last Done: 09/21/24 17:11
*General Assessment Last Done: 09/21/24 17:11
*Neglect/Abuse Screening Last Done: 09/21/24 17:11
ED- Cardiac Assessment Last Done: 09/21/24 17:19
ED- Neurological Assessment Last Done: 09/21/24 17:19
ED- Pulmonary Assessment Last Done: 09/21/24 17:19
Discharge Date and Time
Print Language: GRENADIAN
[2024-09-21 17:55] LABS: Lactic Acid 2.3 mmol/L (0.7-2.0)
[2024-09-21 17:56] LABS: ALT (SGPT) 39 U/L (0-50); AST (SGOT) 48 U/L (17-59); Alkaline Phosphatase 171 U/L (38-126); Blood Urea Nitrogen 28 mg/dl (9-20); Calcium 8.3 mg/dl (8.4-10.2); Carbon Dioxide 23 mmol/L (22-30); Chloride 103 mmol/L (98-107); Estimated Creatinine Clearance 40 ml/min; Glucose 121 mg/dl (70-99); Potassium 4.5 mmol/L (3.5-5.1); Sodium 135 mmol/L (135-145); Total Bilirubin 0.7 mg/dl (0.2-1.3); Total Protein 6.1 g/dl (6.3-8.2); eGFR 38.77
[2024-09-21] MEDS: TYLENOL 1000 MG PO (18:30)
[2024-09-21] MEDS: NSS 2100 ML IV (18:30)
[2024-09-21] MEDS: AZACTAM 2000 MG IV (18:30)
[2024-09-21 19:18] LABS: COVID-19 Antigen Negative (Negative)
[2024-09-21] MEDS: LR 500 IV (20:36)
[2024-09-21 20:47] LABS: Urine Albumin 2+ (Neg - Trace); Urine Bilirubin Negative (Negative); Urine Character Clear (Clear); Urine Color Yellow; Urine Glucose Negative (Negative); Urine Ketone Negative (Negative); Urine Leukocyte 3+ (Negative); Urine Nitrite Negative (Negative); Urine Occult Blood 4+ (Negative); Urine Specific Gravity 1.015 (<1.030); Urine Urobilinogen Negative (Neg - 1+)
[2024-09-21 20:59] LABS: Urine Squamous Cell 0-2 /LPF (Few)
[2024-09-21 21:00] LABS: Urine Bacteria Few (Negative)
[2024-09-21 21:01] LABS: Urine Red Blood Cell 60-70 /HPF (0-2)
[2024-09-21 22:34] LABS: Lactic Acid 1.5 mmol/L (0.7-2.0)
[2024-09-22] VITALS (8 sets, daily range): BP systolic 97–120; BP diastolic 65–82; BMI 32.3
--- NOTE | 2024-09-22 02:33 | HPS.HSE ---
Family Physician
-
Family Physician: Petros Agustin
Chief Complaint
-
Low blood pressure
History of Present Illness
This is a 73-year-old male who has past medical history significant for hypertension, hyperlipidemia, recent pulmonary embolism in May, chronic urinary retention, recent left-sided branch retinal artery occlusion in August, recent admission for
urinary tract infection and ZHOU will recently status post bilateral nephrostomy tubes with nephrostomy bag presents to the emergency department from his outpatient rehab with concern for low blood pressure.
Patient tells me that it been feeling well up until the evening. He was spending time in his rehab when he noted that he had low-grade fevers was blood pressure was low also and ambulance was called and patient was brought to the emergency
department.
Patient himself denies having any fevers or chills. He does not make any urine. He denies any flank pain. He denies any abdominal pain nausea or vomiting. He denies any other signs of infection including cough shortness of breath dyspnea on
exertion skin changes or joint swelling erythema or tenderness. He denies any known sick contacts.
He reports that the nephrostomy has been putting out the same amount and color of urine on the left. He has very minimal output on the right and this has been the case since installation.
On arrival in the emergency department his blood pressure was 100/68 with a pulse of 68 his temperature was 100.8 and was satting 96% on room air. He is hemoglobin was 8.2 which is slightly decreased from 11.3. White count was 8.6 and platelet
count was 405. His electrolytes were normal. His BUN and creatinine had improved to 28 and 1.8 respectively from 48 and 3.1 respectively. Glucose was normal at 121. UA is mostly blood with few bacteria and leukocyte esterase.
Kidney bladder ultrasound shows There is bilateral nephrostomy tubes with mild prominence of the collecting systems.
There is a 3.9 x 3.1 x 3.6 cm lesion along the lower pole the right kidney which may represent complex cyst. Further evaluation with CT or MRI may be considered.
There is diffuse urinary bladder wall thickening with a focal 1.8 x 1.9 cm nodular focus which may represent a mass. Consider direct visualization for further evaluation.
Layering echogenic focus within the inferior aspect of the urinary bladder which may represent debris in the setting of infection. Blood products could also appear similar.
Medical History
Past Medical History
Past Medical History: Reports Other
Additional Past Medical History:
Pulmonary Embolism - May 2024
Essential Hypertension
Hyperlipidemia
Urinary Retention
Past Surgical History: Reports Other
Additional Past Surgical History:
Left Indirect Inguinal Hernia Repair
Appendectomy
Social History
Tobacco: Non-smoker
Alcohol: None
Family History
Family History: Not pertinent
Allergies / Home Medications
Allergies reflects when Allergies were last updated in [employer].
Home Medications with original date entered in [employer]
Allergy/Medication List:
Allergies
Allergy/AdvReac Type Severity Reaction Status Date / Time
No Known Allergies Allergy Verified 08/25/24 12:47
Home Medications
apixaban 5 mg tablet (Eliquis) 5 mg PO BID 08/25/24
bisacodyl 5 mg tablet,delayed release (Dulcolax (bisacodyl)) 5 mg PO DAILYPRN PRN constipation 08/25/24
lisinopril 10 mg-hydrochlorothiazide 12.5 mg tablet 1 tab PO DAILY 08/25/24
rosuvastatin 5 mg tablet 5 mg PO HS 08/25/24
therapeutic multivitamin 1 tab PO DAILY 08/25/24
Review of Systems
-
History Source: Patient
A 12 point ROS was completed and negative except as noted: Yes
Constitutional: Denies Fever or Chills
Respiratory: Denies Cough or Trouble Breathing
Cardiac: Denies Chest Pain or Palpitations
Abdomen/GI: Denies Abdominal Pain, Nausea, Vomiting or Diarrhea
: Reports Other (bilateral nephrostomy tubes)
Musculoskeletal: Reports No Symptoms
Skin: Reports No Symptoms
Neurological: Reports No Symptoms
Endocrine: Reports No Symptoms
Hematologic/Lymphatic: Reports No Symptoms
Psych: Reports No Symptoms
Physical Exam
Vital Signs
Vital Signs
Temp Pulse Resp BP Pulse Ox
99.3 F 86 22 100/68 96
09/21/24 19:55 09/21/24 23:45 09/21/24 23:45 09/21/24 23:30 09/21/24 20:30
Physical Exam
General: Comfortable and Conversant
HEENT: Anicteric and Moist mucous membranes
Respiratory: Clear and Non Labored Respirations
Cardiac: S1/S2 and Regular Rhythm
GI: Soft and Non Tender
Rectal: Deferred by Provider
Genito-urinary: Nephrostomy Tubes (Left nephrostomy tube with clear urine. Right nephrostomy tube with dark/bloody output.)
Musculoskeletal: No Clubbing, No Cyanosis and No Edema
Skin: Warm, Dry and Other (Chronic lower extremity skin discoloration)
Neuro: AO x 3 and Nonfocal/grossly intact
Psych: Calm
Laboratory Results
-
09/21/24 17:34
09/21/24 17:34
Laboratory Results
Lactic Acid 1.5 mmol/L (0.7-2.0) 09/21/24 22:15
Total Bilirubin 0.7 mg/dl (0.2-1.3) 09/21/24 17:34
AST 48 U/L (17-59) 09/21/24 17:34
ALT 39 U/L (0-50) 09/21/24 17:34
Alkaline Phosphatase 171 U/L (38-126) H 09/21/24 17:34
Data Reviewed
-
Ultrasound: Report Reviewed by me
Lab Data: Labs Reviewed by me
Old Records: Reviewed
Impression/Plan
-
IMPRESSION:
73-year-old with past medical history of hypertension, hyperlipidemia, pulmonary embolism, urinary retention, recent admission for ZHOU and urinary tract infection status post bilateral nephrostomy tube who presents to the emergency department with
low blood pressure and low-grade fevers concerning for an infection. Fever to 100.8 in ED. His CBC shows no leukocytosis. UA was equivocal in the setting of bilateral nephrostomy tubes. The renal function has improved and electrolytes are normal.
The imaging is consistent with bilateral nephrostomy tubes with mild prominence of the collecting systems but no new hydronephrosis. There is question of cystitis with diffuse urinary bladder wall thickening and the possibility of nodule or mass in
the bladder. There is a 4 cm lesion along the lower pole of the right kidney which may represent complex cyst.
PLAN:
Suspected complicated UTI - Low-grade fevers, low blood pressures concerning for urinary tract infection with complicated UTI. Patient does not appear to have sepsis at this time.
-Admit to [facility]
-Blood culture sent
-Urine culture sent (from left urosotomy)
-Will continue empiric antibiotics with IV cefepime at this time (prior cultures + for pseudomonas and klebsiella)
-Status post IV fluids will monitor off IV fluids for now
-ID consultation
-Urinary function and imaging suggest appropriate decompressed kidneys and no evidence of renewed obstruction. He does appear to have only functioning left kidney.
- imaging findings can be followed up with outpatient urology
PE
- continue eliquis at this time
BRAO
- continue statin
- BP meds have been held
DVT PPX - on apixaban
Code status - Full code
[2024-09-22] MEDS: LR IV ×2 (02:36→06:27)
--- NOTE | 2024-09-22 02:57 | EDRN ---
Report received, introduced myself to patient, emptied urine bag and re-checked vitals, patient aware waiting on a bed to be ready.
--- NOTE | 2024-09-22 03:58 | EDRN ---
No Delay sent to the floor
--- NOTE | 2024-09-22 04:22 | EDRN ---
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 he soiled himself, large amount of liquid stool noted in brief and on sheet, patient cleaned up, new brief placed on patient as well as a new sheet, informed the printing shop supervisor who changed the bed, informed the floor
[2024-09-22] MEDS: LR 1000 IV ×3 (05:25→23:17)
[2024-09-22] MEDS: MAXIPIME 1000 MG IV ×2 (05:34→17:44)
[2024-09-22] MEDS: STERILE WATER FOR INJECTION 10 ML IV ×2 (05:35→17:44)
[2024-09-22 07:32] LABS: Hematocrit 23.3 % (39.0-52.0); Hemoglobin 7.6 g/dL (13.0-18.0); Mean Corp Hgb Conc. 32.6 g/dL (33.0-37.0); Mean Corpuscular Hgb 30.4 pg (27.0-31.0); Mean Corpuscular Volume 93.2 fL (80.0-94.0); Mean Platelet Volume 9.5 fL (7.4-10.4); Platelet Count 308 10^3/uL (130-400); Red Cell Dist. Width 13.7 % (11.5-14.5); White Blood Cell Count 5.5 10^3/uL (4.8-10.8)
[2024-09-22 07:54] LABS: Blood Urea Nitrogen 24 mg/dl (9-20); Carbon Dioxide 25 mmol/L (22-30); Chloride 108 mmol/L (98-107); Estimated Creatinine Clearance 42 ml/min; Glucose 104 mg/dl (70-99); Potassium 3.9 mmol/L (3.5-5.1); Sodium 137 mmol/L (135-145); eGFR 41.52
[2024-09-22] MEDS: CRESTOR 40 MG PO (08:28)
[2024-09-22] MEDS: ELIQUIS 5 MG PO ×2 (08:28→21:13)
[2024-09-22] MEDS: SENOKOT 17.2 MG PO (08:28)
[2024-09-22] MEDS: COLACE 100 MG PO ×2 (08:29→21:13)
[2024-09-22] MEDS: PROTONIX IV 40 MG IV ×2 (09:56→21:13)
[2024-09-22] MEDS: NSS (PRESERVATIVE FREE) 10 ML IV ×2 (09:56→21:13)
[2024-09-22 09:57] LABS: Iron 43 ug/dl (49-181)
[2024-09-22 10:07] LABS: Percent Saturation 22 % (20-50); Total Iron Binding Capacity 195 ug/dl (261-462)
--- NOTE | 2024-09-22 11:56 | CON.ID ---
Consultation
-
Date/Time Consultation Requested: 09/22/24 5:03
Date/Time Consultation Performed: 09/22/24 11:57
Requesting Provider: Dr Treviño
Performing Provider: Dr Moore
Reason for Consultation: ? complex uti, simone nephrostomy tube draining well
Chief Complaint / Past History
Chief Complaint
hypotension
History of Present Illness
Mr Guo is a 73-year-old male, past medical history recent admission for urinary tract infection and ZHOU status post bilateral nephrostomy tubes who presents to the emergency department from his outpatient rehab for low blood pressure and low grade
fevers per staff. He hasnt felt feverish or chills. Reports minimal, nonproductive cough. He does not make any urine. Denies: headache, sinus tenderness, sore throat, shortness of breath, dyspnea on exertion, nausea, vomiting, abdominal pain,
flank pain, new rashs, skin changes or joint swelling erythema or tenderness. Doesnt make urine. The nephrostomy tubes are patent with blood tinged urine on the right and clear urine on the left. He denies any known sick contacts.
He reports that the nephrostomy has been putting out the same amount and color of urine on the left. He has very minimal output on the right and this has been the case since installation.
On arrival in the emergency department his blood pressure was 100/68, subsequently with intermittnet borderline hypotension, with a pulse of 68 his temperature was 100.8 and was satting 96% on room air. WBC 8.6 today 5.5; L shift was noted on
arrival. hemoglobin was 8.2 (baseline 11.3) platelet count was 405. His electrolytes were normal. Cr basline was 3.1 and 1.8 on arrival. lactic acid initially 2.3 then 1.5. LFTs WNL. UA without significant pyuria. Kidney bladder ultrasound:
bilateral nephrostomy tubes with mild prominence of the collecting systems, 3.9 x 3.1 x 3.6 cm lesion along the lower pole the right kidney which may represent complex cyst, diffuse urinary bladder wall thickening with a focal 1.8 x 1.9 cm nodular
focus which may represent a mass
Past History
Additional Past Medical History:
Pulmonary Embolism - May 2024
Essential Hypertension
Hyperlipidemia
Urinary Retention
Additional Past Surgical History:
Left Indirect Inguinal Hernia Repair
Appendectomy
Allergy History:
No Known Allergies Allergy (Verified 09/21/24 17:11)
Medications Reviewed: Yes
Social History
Tobacco: Non-Smoker
Alcohol: None
Family History
Family History: Not Pertinent
Review of Systems
Review of Systems
General: Negative Fever or Chills
All systems: All other systems were reviewed and were negative
Vital Signs
Temp Pulse Resp BP Pulse Ox
97.7 F 88 18 107/69 97
09/22/24 07:00 09/22/24 07:00 09/22/24 07:00 09/22/24 07:00 09/22/24 07:00
Physical Exam
Physical Exam
Constitutional: No Acute Distress and Chronically Ill
Cardiovascular: Regular Rate and S1/S2; Negative Murmur or Rub
Pulmonary: Clear and Symmetric; Negative Wheezes, Rales or Rhonchi
Gastrointestinal: Soft, Non Tender, Non Distended and Normal Bowel Sounds
Skin: Warm and Dry; Negative Rash or Jaundice
Lines: Other (clear urine L, blood tinged urine on the R)
Lab / Diagnostic Study Results
09/22/24 06:38
Abs Immat Gran (auto) 0.1 10^3/uL (0-0.05) H 09/21/24 17:34
Absolute Neuts (auto) 7.4 10^3/uL (1.4-6.5) H 09/21/24 17:34
Absolute Lymphs (auto) 0.6 10^3/uL (1.2-3.4) L 09/21/24 17:34
Absolute Monos (auto) 0.5 10^3/uL (0.1-0.6) 09/21/24 17:34
Absolute Basos (auto) 0.0 10^3/uL (0-0.2) 09/21/24 17:34
Immature Gran % 1.2 % (0-0.5) H 09/21/24 17:34
Neutrophils % 85.7 % (42.2-75.2) H 09/21/24 17:34
Lymphocytes % 7.1 % (20.5-51.1) L 09/21/24 17:34
Monocytes % 5.6 % (1.7-9.3) 09/21/24 17:34
Eosinophils % 0.2 % (0-6) 09/21/24 17:34
Basophils % 0.2 % (0-2) 09/21/24 17:34
Lactic Acid 1.5 mmol/L (0.7-2.0) 09/21/24 22:15
Ur Squamous Epith Cells 0-2 /LPF (Few) 09/21/24 20:33
Microbiology Results
Micro:
09/21/24 20:33 Urine Culture - Pending
Urine
09/21/24 18:42 Influenza Types A & B (LACEY) - Final
Nasal Swab Negative for Influenza A & B, NAAT
Negative results must be combined with clinical observations
and patient history.
Nucleic Acid Amplification test (NAAT)performed on the
[employer] platform.
09/21/24 17:34 Blood Culture - Pending
Blood/Venous
Assessment / Plan
Hypotension - may be stabilizing
Fever
Sepsis
Anemia - progressive
- note declining hgb - management per IM service
- hypotension/sepsis may relate to progressive anemia
- send second set of blood cultures given intermittent hypotension
- UA without pyuria atypical for a UTI, urine culture in progress
- covid and influenza screens negative
- CXR - reporting minimal nonproductive cough
- can continue cefepime for the moment
- suggest urology consult vs outpatient follow up for bladder mass
--- NOTE | 2024-09-22 12:53 | W.PN.HOSP.TC ---
Addendum entered and electronically signed by Ian Landeros MD 09/22/24 13:08:
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
Was seen by ophthalmology prior to coming to the hospital who diagnosed KHAN
f/u outpatient
Renal ultrasound with right kidney complex cyst, diffuse urinary bladder wall thickening which may represent a mass.
Sees urology outpatient
Original Note:
Today's Communication/Plan
-
Monitor vital signs see plan
Repeat hemoglobin later today
Possible transfusion if hgb runs low
Follow urine culture
Heme test stool
PPI
Fluids
Assessment / Plan
Assessment / Plan
General: Comfortable and Conversant
HEENT: Anicteric and Moist mucous membranes
Respiratory: Clear and Non Labored Respirations
Cardiac: S1/S2 and Regular Rhythm
GI: Soft and Non Tender
Genito-urinary: Nephrostomy Tubes (Left nephrostomy tube with clear urine. Right nephrostomy tube with dark/bloody output.)
Musculoskeletal: No Edema
Skin: Warm, Dry and Other (Chronic lower extremity skin discoloration)
Neuro: AO x 3 and Nonfocal/grossly intact
Psych: Calm
Suspected complicated UTI
On last admission here patient had a Javier catheter however after he was discharged per patient he was admitted to [facility] where they put bilateral nephrostomy tube.
Requested records from [facility]
Continue with antibiotics
ID following
Follow urine culture, blood culture
Bilateral nephrostomy tube appears to be draining, monitor
Follow fever curve
Anemia suspect likely secondary to acute blood loss suspect possibly related to hematuria
Cannot rule out GI bleed, patient has vision loss due to retinal artery occlusion so unsure if he can see if having GI bleed. Denies any abdominal pain
Check heme test stool
Add PPI
Blood consented, repeat later today and if low then will transfuse blood
IVF
Diabetes mellitus
Recent A1c 6.4
Monitor
Renal insufficiency, on last admission creatinine was increased
Creatinine now 1.7, will see if patient is at his baseline
monitor
History of pulmonary embolism
Continue Eliquis for now
Essential hypertension
Not on any meds anymore, monitor
Hyperlipidemia
DVT prophylaxis
Eliquis
Full code
I spent a total of 52 minutes with the patient or on the floor. More than 50% of this time involved counseling and coordination of care.
Anticipated Discharge: > 48 hours
Subjective/Interval History
-
Date of Service: September 22, 2024
denies pain
Objective Data
-
Labs:
Laboratory Results
09/22/24 09/22/24
06:38 13:00
WBC 5.5
Hgb 7.6 L Pending
Hct 23.3 L Pending
Plt Count 308 D
Sodium 137
Potassium 3.9
Chloride 108 H
Carbon Dioxide 25
BUN 24 H
Creatinine 1.7 H
Glucose 104 H
Calcium 8.0 L
Vital Signs:
Vital Signs
Temp Pulse Resp BP Pulse Ox
97.7 F 88 18 107/69 97
09/22/24 07:00 09/22/24 07:00 09/22/24 07:00 09/22/24 07:00 09/22/24 07:00
I&O
09/21/24 09/22/24 09/23/24
06:59 06:59 06:59
Output Total 700 / 700
Balance -700 / -700
[2024-09-22 13:11] LABS: Hematocrit 23.3 % (39.0-52.0); Hemoglobin 7.7 g/dL (13.0-18.0)
[2024-09-22 14:15] LABS: Folate 7.4 ng/ml (2.76-20); Vitamin B12 971 pg/ml (239-931)
--- NOTE | 2024-09-22 16:05 | CM ---
Initial assessment completed with pt.
Pt is a 73yr old male admitted with suspected UTI
Pt was previously admitted in September 04 with ZHOU that was possibly related to hypotension. At that time, pt was dc'd to home with his with a new Luque and no additional needs. Per pt, he was then readmitted to [facility], shortly
after, and the luque was removed and he received bilateral Nephrostomy tubes. From [facility], pt was then discharged to [facility] on Tuesday of this week where he then began with infection like symptoms and readmitted to .
[place] [address] [facility] [place] [address], and he lives there with his and their sons.
Pt is indep at baseline and drives
Per pt, he anticipates the plan being that he returns to [facility] at mo from .
PCP; Petros Agustin
Pharm; [facility]
PLAN; Anticipate return to [facility] SNF
[2024-09-23] VITALS (7 sets, daily range): BP systolic 105–123; BP diastolic 65–80
[2024-09-23] MEDS: STERILE WATER FOR INJECTION 10 ML IV (05:14)
[2024-09-23] MEDS: MAXIPIME 1000 MG IV (05:15)
[2024-09-23] MEDS: SENOKOT 17.2 MG PO (08:33)
[2024-09-23] MEDS: LR 1000 IV ×3 (08:33→23:40)
[2024-09-23] MEDS: PROTONIX IV 40 MG IV ×2 (08:33→21:47)
[2024-09-23] MEDS: NSS (PRESERVATIVE FREE) 10 ML IV ×2 (08:33→21:47)
[2024-09-23] MEDS: COLACE 100 MG PO ×2 (08:33→21:47)
[2024-09-23] MEDS: CRESTOR 40 MG PO (08:34)
[2024-09-23] MEDS: ELIQUIS 5 MG PO ×2 (08:34→21:47)
[2024-09-23 09:08] LABS: % Basophils 0.3 % (0-2); % Eosinophils 2.4 % (0-6); % Immature Granulocytes 0.6 % (0-0.5); % Monocytes 10.1 % (1.7-9.3); % Neutrophils 72.6 % (42.2-75.2); Absolute Eosinophils 0.2 10^3/uL (0-0.7); Absolute Immature Granulocytes 0.1 10^3/uL (0-0.05); Absolute Lymphocytes 1.1 10^3/uL (1.2-3.4); Absolute Monocytes 0.8 10^3/uL (0.1-0.6); Absolute Neutrophils 5.7 10^3/uL (1.4-6.5); Hematocrit 21.5 % (39.0-52.0); Hemoglobin 7.1 g/dL (13.0-18.0); Mean Corpuscular Hgb 30.5 pg (27.0-31.0); Mean Corpuscular Volume 92.3 fL (80.0-94.0); Mean Platelet Volume 9.5 fL (7.4-10.4); Nucleated Red Blood Cells % 0 % (-); Platelet Count 325 10^3/uL (130-400); Red Blood Cell Count 2.33 10^6/uL (4.70-6.10); Red Cell Dist. Width 13.8 % (11.5-14.5); White Blood Cell Count 7.9 10^3/uL (4.8-10.8)
[2024-09-23 09:21] LABS: Blood Urea Nitrogen 18 mg/dl (9-20); Calcium 8.1 mg/dl (8.4-10.2); Carbon Dioxide 26 mmol/L (22-30); Chloride 107 mmol/L (98-107); Estimated Creatinine Clearance 48 ml/min; Glucose 115 mg/dl (70-99); Potassium 3.9 mmol/L (3.5-5.1); Sodium 137 mmol/L (135-145); eGFR 48.25
[2024-09-23] MEDS: ZITHROMAX 500 MG PO (10:22)
--- NOTE | 2024-09-23 12:04 | W.PN.HOSP.TC ---
Today's Communication/Plan
-
Monitor vital signs see plan
Add azithromycin
Follow fever curve
Follow cultures
Transfuse 1 unit PRBC
Patient has follow-up with urology/oncology regarding his bladder malignancy, he is yet to start chemoradiation
Assessment / Plan
Assessment / Plan
General: Comfortable and Conversant
HEENT: Anicteric and Moist mucous membranes
Respiratory: Clear and Non Labored Respirations
Cardiac: S1/S2 and Regular Rhythm
GI: Soft and Non Tender
Genito-urinary: Nephrostomy Tubes B/L
Musculoskeletal: No Edema
Skin: Warm, Dry and Other (Chronic lower extremity skin discoloration)
Neuro: AO x 3 and Nonfocal/grossly intact
Psych: Calm
Fever suspect likely secondary to UTI and pneumonia
Chest x-ray with pneumonia, added azithromycin
Suspected complicated UTI
On last admission here patient had a Javier catheter however after he was discharged per patient he was admitted to [facility] where they put bilateral nephrostomy tube. Recently was discharged to [facility] from [facility].
Requested records from [facility]
Continue with antibiotics
ID following
Follow urine culture, blood culture
Bilateral nephrostomy tube appears to be draining, monitor
Follow fever curve
Anemia suspect likely secondary to acute blood loss and possible acute on chronic
He has been hospitalized multiple time in past month, suspect secondary to also from all the blood draws. Now with bladder malignancy.
Denies abdominal pain, heme test stool negative
PPI
Hemoglobin 7.1 today, transfuse 1 unit PRBC and monitor
Diabetes mellitus
Recent A1c 6.4
Monitor
Renal insufficiency, on last admission creatinine was increased
Creatinine now 1.5, will see if patient is at his baseline
monitor
History of pulmonary embolism
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
Was seen by ophthalmology who diagnosed KHAN
f/u outpatient
Renal ultrasound with right kidney complex cyst, diffuse urinary bladder wall thickening which may represent a mass. recently diagnosed bladder malignancy; awaiting records from [facility]
Sees urology outpatient; the patient is also followed up with urology oncology and he will be following up soon with them for possible chemoradiation
Continue Eliquis for now
Essential hypertension
Not on any meds anymore, monitor
Hyperlipidemia
DVT prophylaxis
Eliquis
Full code
I spent a total of 53 minutes with the patient or on the floor. More than 50% of this time involved counseling and coordination of care.
Anticipated Discharge: > 48 hours
Subjective/Interval History
-
Date of Service: September 23, 2024
Denies pain
Objective Data
-
Labs:
Laboratory Results
09/23/24
08:56
WBC 7.9
Hgb 7.1 L
Hct 21.5 L
Plt Count 325
Sodium 137
Potassium 3.9
Chloride 107
Carbon Dioxide 26
BUN 18
Creatinine 1.5 H
Glucose 115 H
Calcium 8.1 L
Vital Signs:
Vital Signs
Temp Pulse Resp BP Pulse Ox
98.8 F 99 20 121/71 96
09/23/24 11:52 09/23/24 11:52 09/23/24 11:52 09/23/24 11:52 09/23/24 11:52
I&O
09/22/24 09/23/24 09/24/24
06:59 06:59 06:59
Intake Total 1320 / 1320 480 / 480
Output Total 700 / 700 3950 / 3950 875 / 875
Balance -700 / -700 -2630 / -2630 -395 / -395
[2024-09-23] MEDS: AMPICILLIN 108 MG IV ×2 (14:43→21:47)
--- NOTE | 2024-09-23 16:17 | W.PN.UPDATE ---
Update Note
Progress Note Update
chart reviewed
urine culture with e faecalis
CXR possible atelectasis less likely pneumonia
switched to ampicillin based on local antibiotigram; stopped cefepime/azithromycin
[2024-09-23 20:04] LABS: Hematocrit 25.8 % (39.0-52.0); Hemoglobin 8.8 g/dL (13.0-18.0)
[2024-09-23 23:07] LABS: Transferrin 131 mg/dL (200-360)
[2024-09-24] MEDS: AMPICILLIN 108 MG IV (05:25)
[2024-09-24] MEDS: LR 1000 IV (06:34)
[2024-09-24 07:00] VITALS: BP 120/82
[2024-09-24 07:40] LABS: % Basophils 0.4 % (0-2); % Monocytes 12.4 % (1.7-9.3); % Neutrophils 64.2 % (42.2-75.2); Absolute Eosinophils 0.3 10^3/uL (0-0.7); Absolute Immature Granulocytes 0.1 10^3/uL (0-0.05); Absolute Lymphocytes 1.2 10^3/uL (1.2-3.4); Absolute Monocytes 0.8 10^3/uL (0.1-0.6); Absolute Neutrophils 4.3 10^3/uL (1.4-6.5); Hematocrit 24.4 % (39.0-52.0); Hemoglobin 8.3 g/dL (13.0-18.0); Mean Corpuscular Hgb 30.7 pg (27.0-31.0); Mean Corpuscular Volume 90.4 fL (80.0-94.0); Mean Platelet Volume 9.9 fL (7.4-10.4); Nucleated Red Blood Cells % 0 % (-); Platelet Count 315 10^3/uL (130-400); Red Cell Dist. Width 14.1 % (11.5-14.5); White Blood Cell Count 6.7 10^3/uL (4.8-10.8)
[2024-09-24 08:23] LABS: Blood Urea Nitrogen 17 mg/dl (9-20); Calcium 8.2 mg/dl (8.4-10.2); Carbon Dioxide 26 mmol/L (22-30); Chloride 105 mmol/L (98-107); Estimated Creatinine Clearance 48 ml/min; Glucose 92 mg/dl (70-99); Potassium 4.8 mmol/L (3.5-5.1); Sodium 139 mmol/L (135-145); eGFR 48.25
[2024-09-24 09:26] VITALS: BP 120/82
[2024-09-24] MEDS: SENOKOT 17.2 MG PO (10:11)
[2024-09-24] MEDS: CRESTOR 40 MG PO (10:12)
[2024-09-24] MEDS: PROTONIX IV 40 MG IV ×2 (10:13→20:52)
[2024-09-24] MEDS: NSS (PRESERVATIVE FREE) 10 ML IV ×2 (10:13→20:51)
[2024-09-24] MEDS: COLACE 100 MG PO ×2 (10:13→20:51)
[2024-09-24] MEDS: ELIQUIS 5 MG PO ×2 (10:13→20:51)
--- NOTE | 2024-09-24 11:23 | CM ---
Addendum entered by Ca Nguyen 09/25/24 15:53:
CM spoke with [facility], will provide private room for patient. Aware patient will require oral Linezolid. Phone call to patients to discuss [facility] can accept, will require auth, will await return call from to confirm
agreeable to [facility].
Addendum entered by Ca Nguyen 09/25/24 13:29:
Patient now on contact precautions and will require private room, [facility] unable to accept. updated, additional referrals placed to [facility] and [facility].
Original Note:
CM reviewed chart, received call from patients , requesting additional referrals placed to local [facility] SNFS- requesting [facility]. Patient will need OT evals for auth when stable for discharge/ SNF found. CM will continue
to follow for all discharge planning needs.
Plan; SNF once facility found/medically stable.
--- NOTE | 2024-09-24 13:38 | W.PN.HOSP.TC ---
Today's Communication/Plan
-
await ID input for abx
discharge planning for snf rehab
Assessment / Plan
Assessment / Plan
1. Enterococcus UTI
Possible pneumonia
UA showing hematuria and few bacteria although no significant pyuria
Chest x-ray suggestive of pneumonia
Antibiotics have been consolidated to ampicillin with urine culture growing Enterococcus species
No repeat fever episode after hospitalization, continue follow temperature curve
2. Normocytic anemia
Presumed to be hematuria related versus malignancy related
Patient is on Eliquis and no reported melena/black stool
Denies abdominal pain, heme test stool negative
patient required 1 unit of blood transfusion for hemoglobin of 7.1
Will maintain patient on iron every other day at discharge
3. Type II Diabetes mellitus
Recent A1c 6.4
4. 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
Baseline unclear but based on blood work during recent hospitalization patient have CKDIIIB
cr is better then previous visits, continue monitoring
5. History of pulmonary embolism
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
Was seen by ophthalmology who diagnosed KHAN
f/u outpatient
6. Right kidney complex cyst
Suspected bladder malignancy
Patient follows up with urology at [place]
Also has seen oncology recently
Patient to continue follow-up with oncology/urology postdischarge
7. Essential hypertension
Not on any meds anymore, monitor
Hyperlipidemia
DVT prophylaxis -Eliquis
Full code
Anticipated Discharge: Within 24 hours
Subjective/Interval History
-
Date of Service: September 24, 2024
No fever overnight
Denies abdominal pain/nausea/vomiting
No other reported problems
Objective Data
-
Labs:
Laboratory Results
09/24/24
06:35
WBC 6.7
Hgb 8.3 L
Hct 24.4 L
Plt Count 315
Sodium 139
Potassium 4.8
Chloride 105
Carbon Dioxide 26
BUN 17
Creatinine 1.5 H
Glucose 92
Calcium 8.2 L
Vital Signs:
Vital Signs
Temp Pulse Resp BP Pulse Ox
97.4 F 88 19 120/82 94
09/24/24 07:00 09/24/24 07:00 09/24/24 07:00 09/24/24 07:00 09/24/24 07:00
I&O
09/23/24 09/24/24 09/25/24
06:59 06:59 06:59
Intake Total 1320 / 1320 4936 / 4936
Output Total 3950 / 3950 5175 / 5175 500 / 500
Balance -2630 / -2630 -239 / -239 -500 / -500
Review of Systems
-
Respiratory: Reports No Symptoms
Cardiac: Reports No Symptoms
Abdomen/GI: Reports No Symptoms
Physical Exam
-
General: No Apparent Distress and Comfortable
HEENT: Negative Oxygen
Genito-urinary: Nephrostomy Tubes (B/L nephrostomy tube )
Musculoskeletal: No Edema
Neuro: Awake, Alert, Oriented, No Motor Deficits and Nonfocal/Grossly Intact
Psych: Calm
--- NOTE | 2024-09-24 14:37 | W.PN.ID1 ---
Date of Service
Date of Service: September 24, 2024
Today's Communication
- switch to amoxicillin 1 gm TID x 14 days, 09/23-10/06
- stable for dc from ID perspective
Assessment / Plan
Possible UTI
Unlikely pneumonia, more likely atelectasis
Anemia - stable
- switch to amoxicillin 1 gm TID x 14 days, 09/23-10/06
- stable for dc from ID perspective
Chief Complaint
-: Fever and Other
Subjective / Review of Systems
afebrile
bp stable
Vital Signs / Physical Exam
Vital Signs
Vital Signs
Temp Pulse Resp BP Pulse Ox
97.4 F 88 19 120/82 94
09/24/24 07:00 09/24/24 07:00 09/24/24 07:00 09/24/24 07:00 09/24/24 07:00
Physical Exam
Constitutional: No Acute Distress
Cardiovascular: Regular Rate and S1/S2; Negative Murmur or Rub
Pulmonary: Clear and Symmetric; Negative Wheezes or Rales
Gastrointestinal: Soft, Non Tender, Non Distended and Normal Bowel Sounds
Skin: Warm and Dry; Negative Rash or Jaundice
Objective Data
Lab Data
Lab Results
09/24/24 06:35
09/24/24 06:35
Estimated Creat Clear 48 ml/min 09/24/24 06:35
Lactic Acid 1.5 mmol/L (0.7-2.0) 09/21/24 22:15
Total Bilirubin 0.7 mg/dl (0.2-1.3) 09/21/24 17:34
AST 48 U/L (17-59) 09/21/24 17:34
ALT 39 U/L (0-50) 09/21/24 17:34
Alkaline Phosphatase 171 U/L (38-126) H 09/21/24 17:34
Most recent labs reviewed.
Micro Results:
09/22/24 12:57 Blood Culture - Preliminary
Blood/Venous No Growth in 48 hours- Final report to follow
09/21/24 20:33 Urine Culture - Preliminary
Urine Enterococcus species
09/21/24 17:34 Blood Culture - Preliminary
Blood/Venous No Growth in 48 hours- Final report to follow
09/21/24 18:42 Influenza Types A & B (LACEY) - Final
Nasal Swab Negative for Influenza A & B, NAAT
Negative results must be combined with clinical observations
and patient history.
Nucleic Acid Amplification test (NAAT)performed on the
[employer] NOW platform.
[2024-09-24] MEDS: AMPICILLIN IV (14:52)
[2024-09-24 15:00] VITALS: BP 117/70
[2024-09-24] MEDS: AMOXIL 1000 MG PO (17:46)
[2024-09-24 23:35] VITALS: BP 136/79
[2024-09-25] MEDS: AMOXIL 1000 MG PO ×2 (00:58→08:06)
[2024-09-25 07:00] VITALS: BP 122/68
[2024-09-25] MEDS: CRESTOR 40 MG PO (08:06)
[2024-09-25] MEDS: COLACE 100 MG PO ×2 (08:06→20:54)
[2024-09-25] MEDS: NSS (PRESERVATIVE FREE) 10 ML IV (08:06)
[2024-09-25] MEDS: PROTONIX IV 40 MG IV (08:06)
[2024-09-25] MEDS: ELIQUIS 5 MG PO ×2 (08:07→20:54)
[2024-09-25] MEDS: SENOKOT 17.2 MG PO (08:07)
--- NOTE | 2024-09-25 11:53 | W.PN.ID1 ---
Addendum entered and electronically signed by Zaria Moore MD 09/26/24 13:59:
Late addendum: Todays communication should be consistent with assessment and read
'- switch to linezolid 600 mg PO BID x 10 days
- stable for dc from ID perspective'
Original Note:
Date of Service
Date of Service: September 25, 2024
Today's Communication
- c/w amoxicillin 1 gm TID x 14 days, 09/23-10/06
- stable for dc from ID perspective
Assessment / Plan
Possible UTI
Unlikely pneumonia, more likely atelectasis
Anemia - stable
- switch to linezolid 600 mg PO BID x 10 days
- stable for dc from ID perspective
Chief Complaint
-: Fever and Other
Subjective / Review of Systems
afebrile
bp stable
tolerating current therapies
Vital Signs / Physical Exam
Vital Signs
Vital Signs
Temp Pulse Resp BP Pulse Ox
98 F 92 19 122/68 96
09/25/24 07:00 09/25/24 07:00 09/25/24 07:00 09/25/24 07:00 09/25/24 08:00
Physical Exam
Constitutional: No Acute Distress
Cardiovascular: Regular Rate and S1/S2; Negative Murmur or Rub
Pulmonary: Clear and Symmetric; Negative Wheezes or Rales
Gastrointestinal: Soft, Non Tender, Non Distended and Normal Bowel Sounds
Skin: Warm and Dry; Negative Rash or Jaundice
Objective Data
Lab Data
Lab Results
09/24/24 06:35
09/24/24 06:35
Estimated Creat Clear 48 ml/min 09/24/24 06:35
Lactic Acid 1.5 mmol/L (0.7-2.0) 09/21/24 22:15
Total Bilirubin 0.7 mg/dl (0.2-1.3) 09/21/24 17:34
AST 48 U/L (17-59) 09/21/24 17:34
ALT 39 U/L (0-50) 09/21/24 17:34
Alkaline Phosphatase 171 U/L (38-126) H 09/21/24 17:34
Most recent labs reviewed.
Micro Results:
09/21/24 17:34 Blood Culture - Preliminary
Blood/Venous No Growth in 72 hours- Final report to follow
09/22/24 12:57 Blood Culture - Preliminary
Blood/Venous No Growth in 48 hours- Final report to follow
09/21/24 20:33 Urine Culture - Preliminary
Urine Enterococcus species
09/21/24 18:42 Influenza Types A & B (LACEY) - Final
Nasal Swab Negative for Influenza A & B, NAAT
Negative results must be combined with clinical observations
and patient history.
Nucleic Acid Amplification test (NAAT)performed on the
[employer] NOW platform.
Care Review
Plan reviewed with: Physician (Dr Roberson- discussed sensitivities )
--- NOTE | 2024-09-25 13:25 | PN.CDI ---
CDI
- -
CDI:
Physician Documentation Request
Admit Date: 09/22/24 03:28
Dear Doctor Samaria,
Please review the following and provide your response in the progress notes.
Clinical Indicators:
Pt admitted with complicated UTI /Being teated with Antibiotics have been consolidated to ampicillin with urine culture growing Enterococcus species
Pt with bilateral nephrostomy tubes
Documented per H&P,' Nephrostomy Tubes (Left nephrostomy tube with clear urine. Right nephrostomy tube with dark/bloody output.)...'
Please clarify the relationship between these conditions:
Yes, _UTI__ is related to/associated with/due to Nephrostomy tube___.
No, _UTI__ is not related to/associated with/due to Nephrostomy tube ___ but it is due to ___. (Please specify)
Other ( please specify)
Use of terms such as suspected, likely, concern for, or probable (associated with a specific diagnosis that is being evaluated, monitored, or treated as if it exists) are acceptable and can be coded in the inpatient setting, when documented at the
time of discharge.
Thank you,
Michelle Brownlee RN
CDI Specialist
[place] [facility]
Please use your independent medical judgment in providing your response.
--- NOTE | 2024-09-25 13:31 | PN.CDI ---
CDI
- -
CDI:
Physician Documentation Request
Admit Date: 09/22/24 03:28
Dear Doctor Samaria,
Please review the following and provide your response in the progress notes.
Clinical Indicators:
Pt admitted with complicated UTI
Progress note 09/22&09/23, ' Anemia suspect likely secondary to acute blood loss suspect possibly related to hematuria
Progress note 09/24,' Normocytic anemia Presumed to be hematuria related versus malignancy related....patient required 1 unit of blood transfusion for hemoglobin of 7.1...'
Trended hemoglobin below
looks like past visit on 08/25/24 Hemoglobin was 12.6
09/21/24 09/22/24 09/22/24
17:34 06:38 12:57
Hgb 8.2 L 7.6 L 7.7 L
09/23/24 09/23/24 09/24/24
08:56 19:42 06:35
Hgb 7.1 L 8.8 L D 8.3 L
Please update the status of the documented Acute Blood Loss Anemia Above :
Acute blood loss anemia- Still being monitored/treated
Acute Blood loss Anemia-resolved
Acute Blood loss Anemia-ruled out
Other ( please specify)
Use of terms such as suspected, likely, concern for, or probable (associated with a specific diagnosis that is being evaluated, monitored, or treated as if it exists) are acceptable and can be coded in the inpatient setting, when documented at the
time of discharge.
Thank you,
Michelle Brownlee RN
CDI Specialist
[place] [facility]
Please use your independent medical judgment in providing your response.
--- NOTE | 2024-09-25 13:58 | W.PN.HOSP.TC ---
Today's Communication/Plan
-
d/c rehab held as will need isolation bed
abx adjusted to linezolid
Assessment / Plan
Assessment / Plan
1. VRE faecium UTI
Possible pneumonia
UA showing hematuria and few bacteria although no significant pyuria
Chest x-ray suggestive of pneumonia
No repeat fever episode after hospitalization, continue follow temperature curve
Urinary culture isolate growing VRE faecium, discussed with ID and patient started on Linezolid for 10 days
2. Normocytic anemia
Presumed to be hematuria related versus malignancy related
Patient is on Eliquis and no reported melena/black stool
Denies abdominal pain, heme test stool negative
patient required 1 unit of blood transfusion for hemoglobin of 7.1
Will maintain patient on iron every other day at discharge
3. Type II Diabetes mellitus
Recent A1c 6.4
4. 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
Baseline unclear but based on blood work during recent hospitalization patient have CKDIIIB
cr is better then previous visits, continue monitoring
5. History of pulmonary embolism
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
Was seen by ophthalmology who diagnosed KHAN
f/u outpatient
6. Right kidney complex cyst
Suspected bladder malignancy
Patient follows up with urology at [facility]
Also has seen oncology recently
Patient to continue follow-up with oncology/urology postdischarge
7. Essential hypertension
Not on any meds anymore, monitor
Hyperlipidemia
DVT prophylaxis -Eliquis
Full code
Anticipated Discharge: Within 24 hours
Subjective/Interval History
-
Date of Service: September 25, 2024
No problems overnight
Remains afebrile
Good urine output from nephrostomy tube
Objective Data
-
Vital Signs:
Vital Signs
Temp Pulse Resp BP Pulse Ox
98 F 92 19 122/68 96
09/25/24 07:00 09/25/24 07:00 09/25/24 07:00 09/25/24 07:00 09/25/24 08:00
I&O
09/24/24 09/25/24 09/26/24
06:59 06:59 06:59
Intake Total 4936 / 4936 1400 / 1400
Output Total 5175 / 5175 4250 / 4250 400 / 400
Balance -239 / -239 -2850 / -2850 -400 / -400
Review of Systems
-
Respiratory: Reports No Symptoms
Cardiac: Reports No Symptoms
Abdomen/GI: Reports No Symptoms
Physical Exam
-
General: No Apparent Distress and Comfortable
HEENT: Negative Oxygen
Genito-urinary: Nephrostomy Tubes (B/L nephrostomy tube )
Musculoskeletal: No Edema
Neuro: Awake, Alert, Oriented, No Motor Deficits and Nonfocal/Grossly Intact
Psych: Calm
[2024-09-25] MEDS: ZYVOX 600 MG PO ×2 (14:39→22:19)
[2024-09-25 15:00] VITALS: BP 125/73
[2024-09-25] MEDS: PROTONIX 40 MG PO (20:54)
[2024-09-25 23:40] VITALS: BP 110/79
[2024-09-26 07:15] VITALS: BP 128/80
[2024-09-26] MEDS: ELIQUIS 5 MG PO (07:48)
[2024-09-26] MEDS: SENOKOT 17.2 MG PO (07:48)
[2024-09-26] MEDS: ZYVOX 600 MG PO (07:48)
[2024-09-26] MEDS: CRESTOR 40 MG PO (07:48)
[2024-09-26] MEDS: COLACE 100 MG PO (07:48)
[2024-09-26] MEDS: PROTONIX 40 MG PO (07:49)
--- NOTE | 2024-09-26 09:41 | W.PN.HOSP.TC ---
Addendum entered and electronically signed by Baudilio Roberson MD 09/27/24 16:17:
Add on to diagnosis list
UTI is related to bilateral nephrostomy tube
Acute Blood loss Anemia-resolved
Original Note:
Today's Communication/Plan
-
d/c snf rehab
medically stable
Assessment / Plan
Assessment / Plan
1. VRE faecium UTI
Possible pneumonia
UA showing hematuria and few bacteria although no significant pyuria
Chest x-ray suggestive of pneumonia
No repeat fever episode after hospitalization, continue follow temperature curve
Urinary culture isolate growing VRE faecium, discussed with ID and patient started on Linezolid for 10 days
2. Normocytic anemia
Presumed to be hematuria related versus malignancy related
Patient is on Eliquis and no reported melena/black stool
Denies abdominal pain, heme test stool negative
patient required 1 unit of blood transfusion for hemoglobin of 7.1
Will maintain patient on iron every other day at discharge
3. Type II Diabetes mellitus
Recent A1c 6.4
4. 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
Baseline unclear but based on blood work during recent hospitalization patient have CKDIIIB
cr is better then previous visits, continue monitoring
5. History of pulmonary embolism
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
Was seen by ophthalmology who diagnosed KHAN
f/u outpatient
6. Right kidney complex cyst
Suspected bladder malignancy
Patient follows up with urology at [place]
Also has seen oncology recently
Patient to continue follow-up with oncology/urology postdischarge
7. Essential hypertension
Not on any meds anymore, monitor
Hyperlipidemia
DVT prophylaxis -Eliquis
Full code
More than 30 minutes spent in discharge including
Final examination of the patient
Summarizing hospital stay
Instructions for continuing care to all relevant caregivers
Preparation of discharge records, prescriptions, and referral forms
Total time spent (in minutes): 38 mins
Anticipated Discharge: Today
Subjective/Interval History
-
Date of Service: September 26, 2024
no problems overnight
some leakage at left nephrostomy tube site likely from connecting tube being unscrewed accidentally likely
denies any abd pain/nausea/vomiting
Objective Data
-
Vital Signs:
Vital Signs
Temp Pulse Resp BP Pulse Ox
98.1 F 82 16 128/80 96
09/26/24 07:15 09/26/24 07:15 09/26/24 07:15 09/26/24 07:15 09/26/24 07:15
I&O
09/25/24 09/26/24 09/27/24
06:59 06:59 06:59
Intake Total 1400 / 1400 1560 / 1560
Output Total 4250 / 4250 1775 / 1775
Balance -2850 / -2850 -215 / -215
Review of Systems
-
Respiratory: Reports No Symptoms
Cardiac: Reports No Symptoms
Abdomen/GI: Reports No Symptoms
Physical Exam
-
General: No Apparent Distress and Comfortable
HEENT: Negative Oxygen
Genito-urinary: Nephrostomy Tubes (B/L nephrostomy tube )
Musculoskeletal: No Edema
Neuro: Awake, Alert, Oriented, No Motor Deficits and Nonfocal/Grossly Intact
Psych: Calm
--- NOTE | 2024-09-26 11:30 | CM ---
CM reviewed chart, spoke with Omar from [employer], auth approved to [facility] skilled level 1 for 6 days, 09/26-10/01, call [phone] for updates, auth #[id number]. Patient seen bedside, aware of discharge to SNF today. IMM verbally reviewed,
provided with copy, placed in chart. Call to patients , confirms son will provide transportation to facility around 12:00 p.m. Auth information provided to Venessa at [facility]. CM will continue to follow for all discharge planning needs.
Plan; family to transport to [facility]
Report: [phone]
[2024-09-26 11:44] VITALS: BP 118/74
--- NOTE | 2024-09-26 14:12 | W.DCSUMMARY ---
Discharge Summary
Discharge Data
Date of Admission: 09/22/24
Date of Discharge: 09/26/24
-
Pending Results: No
Hospital Course
Discharging Physician : Dr Bauidlio Roberson
Disposition : SNF rehab
Primary care physician : Dr Petros Agustin
Principal Discharge diagnosis :
Vancomycin-resistant Enterococcus faecium
Chronic Discharge diagnosis :
Normocytic anemia
Type II diabetes malitus
Chronic kidney disesase stage IIIA
History of pulmonary embolism
Right kidney complex cyst
Bladder cancer
Essential hypertension
Hyperlipidemia
Hospital Course :
Patient is a 73-year-old male with no mentioned past medical history came to ER for having new onset of mild grade fever not feeling overall well. Patient was noted to be febrile in ER. Urinalysis in ER showing patient having pyuria and
bacteriuria. Kidney and bladder ultrasound showing bilateral nephrostomy tube in appropriate position, there was bladder wall thickening. Patient was started on broad-spectrum antibiotics and infectious disease physicians were involved in care due
to concern of complicated UTI. Patient was also noted to having possible pneumonia on chest x-ray. Further clinical course ruled out pneumonia and was felt to be atelectasis only. Patient urine and blood cultures were collected as part of workup,
urine culture was growing vancomycin-resistant Enterococcus faecium. ID recommended patient to finish 10-day course of linezolid therapy. Patient will require follow-up CBC to monitor for any myelosuppression. Post improvement patient is being
discharged to [facility] facility [facility].
Important imaging findings :
None
Procedure findings :
None
Discharge Plan
-
Patient Disposition: Custodial/SNF
Discharge Diagnosis/Procedures: Enterococcal UTI, b/l nephrostomy tube
Condition: Fair
Diet: Regular
Activity: As tolerated
Driving Restrictions: No driving
Blood Work: CBC in 10 days
Activity Restrictions/Additional Instructions:
Patient will be on linezolid for 10 days and will need to check CBC in 10 days to monitor for any myelosuppression from antibiotics.
Referrals:
Petros Agustin MD [Family Provider] - in one week
Prescriptions:
New
linezolid 600 mg tablet
600 mg PO BID Qty: 10 0RF
Rx Instructions:
Last dose 10/05 evening
Continued
therapeutic multivitamin Tablet
1 tab PO DAILY
bisacodyl [Dulcolax (bisacodyl)] 5 mg Tablet,Delayed Release (Dr/Ec)
5 mg PO DAILYPRN PRN (Reason: constipation)
Eliquis 5 mg Tablet
5 mg PO BID
rosuvastatin [Crestor] 40 mg tablet
40 mg PO DAILY Qty: 30 0RF
sennosides 8.6 mg Tablet
17.2 mg PO DAILY
acetaminophen 325 mg Tablet
650 mg PO Q4H PRN (Reason: pain/fever)
dextrose [Gluco Burst] 40 % Gel
1 ea PO ONCE PRN (Reason: hypoglycemia)
Rx Instructions:
blood sugar <70 and patient can swallow. recheck after 15 minutes
magnesium hydroxide [Milk of Magnesia] 400 mg/5 mL Suspension
30 ml PO HS PRN (Reason: constipation)
docusate sodium [Colace] 100 mg Capsule
100 mg PO BID
bisacodyl 5 mg Tablet,Delayed Release (Dr/Ec)
5 mg PO HS PRN (Reason: constipation)
Fleet Enema Extra 19-7 gram/197 mL Enema
118 ml UT ONCE PRN (Reason: constipation)
glucagon HCl [Glucagon (HCl) Emergency Kit] 1 mg Recon Soln
1 mg IM Q15M PRN (Reason: hypoglycemia)
Rx Instructions:
if still <70 after glucose gel
dextrose 50 % in water (D50W)
20 ml IV ONCE PRN (Reason: hypoglycemia)
Rx Instructions:
if glucagon not effective
Discharge Orders:
Discharge Patient (As Directed); Ordered 09/25/24
Ordered By: Baudilio Roberson
Discharge Date and Time
Discharge Date/Time: 09/26/24 13:10
Print Language: AZERI
--- NOTE | 2024-09-27 09:53 | PN.CDI ---
CDI
- -
CDI:
Physician Documentation Request
Admit Date: 09/22/24 03:28
Dear Doctor Da,
Please review the following and provide your response in the progress notes.
Clinical Indicators:
Pt admitted with complicated UTI /Being teated with Antibiotics have been consolidated to ampicillin with urine culture growing Enterococcus species
Pt with bilateral nephrostomy tubes
Documented per H&P,' Nephrostomy Tubes (Left nephrostomy tube with clear urine. Right nephrostomy tube with dark/bloody output.)...'
Please clarify the relationship between these conditions:
Yes, _UTI__ is related to/associated with/due to Nephrostomy tube___.
No, _UTI__ is not related to/associated with/due to Nephrostomy tube ___ but it is due to ___. (Please specify)
Other ( please specify)
Use of terms such as suspected, likely, concern for, or probable (associated with a specific diagnosis that is being evaluated, monitored, or treated as if it exists) are acceptable and can be coded in the inpatient setting, when documented at the
time of discharge.
Thank you,
Michelle Brownlee RN
CDI Specialist
[place] [facility]
Please use your independent medical judgment in providing your response.
== END 2024-09-26 13:10 | DRG 699 ==
LOC: 4 WEST ACU 03:28
PROVIDERS: Internal Medicine; ADMITTING PHYSICIAN Internal Medicine; ATTENDING PHYSICIAN Hospitalist; CONSULT PHYSICIAN Student in an Organized Health Care Education/Training Program; EMERGENCY PHYSICIAN Emergency Medicine; FAMILY PHYSICIAN Family Medicine
PROC: 30233N1 Transfusion of Nonautologous Red Blood Cells into Peripheral Vein, Percutaneous Approach (ICD-10-PCS; 2024-09-23)
DX: T83.512A Infection and inflammatory reaction due to nephrostomy catheter, initial encounter (principal); D62 Acute posthemorrhagic anemia; N39.0 Urinary tract infection, site not specified; J98.11 Atelectasis; H34.232 Retinal artery branch occlusion, left eye; Z16.21 Resistance to vancomycin; I95.9 Hypotension, unspecified; E78.00 Pure hypercholesterolemia, unspecified; C67.9 Malignant neoplasm of bladder, unspecified; I10 Essential (primary) hypertension; N28.1 Cyst of kidney, acquired; E11.8 Type 2 diabetes mellitus with unspecified complications; E11.22 Type 2 diabetes mellitus with diabetic chronic kidney disease; N18.31 Chronic kidney disease, stage 3a; B95.2 Enterococcus as the cause of diseases classified elsewhere; R33.9 Retention of urine, unspecified; D75.839 Thrombocytosis, unspecified; R31.9 Hematuria, unspecified; Z86.711 Personal history of pulmonary embolism; Z79.01 Long term (current) use of anticoagulants; Z11.52 Encounter for screening for COVID-19; Y84.6 Urinary catheterization as the cause of abnormal reaction of the patient, or of later complication, without mention of misadventure at the time of the procedure; Y92.9 Unspecified place or not applicable
CPT/HCPCS: 71046; 76770; 80048; 80053; 81003; 81015; 82607; 82728; 82746; 83540; 83550; 83605; 84466; 85014; 85018; 85025; 85027; 86850; 86900; 86901; 86920; 87040; 87077; 87086; 87186; 87502; 87811; 93005; 96361; 96374; 97163; 97167; 99291; P9016